=== PATIENT | male | born 1935 ===

== ENCOUNTER 2017-09-01 19:21 | Emergency (ER) | payer MEDICARE, OTHER ==
[2017-09-01 19:21] VITALS: BMI 23.6
[2017-09-01 19:57] LABS: BASO # 0.1 K/uL (0.0-0.2); BASO % 0.7 % (0.0-2.0); EOS # 0.1 K/uL (0.0-0.7); EOS % 0.9 % (0.0-4.0); HEMATOCRIT 48.1 % (35.0-51.0); LYMPH # 2.3 K/uL (1.0-4.3); LYMPH % 24.2 % (20.0-40.0); MEAN CELL VOLUME 96.5 fl (80.0-94.0); MEAN CORPUSCULAR HEMOGLOBIN 32.6 pg (27.0-31.0); MEAN CORPUSCULAR HGB CONC 33.8 g/dL (33.0-37.0); MEAN PLATELET VOLUME 8.5 fl (7.2-11.7); MONO # 0.7 K/uL (0.0-0.8); MONO % 7.4 % (0.0-10.0); NEUT # 6.3 K/uL (1.8-7.0); NEUT % 66.8 % (50.0-75.0); RED CELL DISTRIBUTION WIDTH 13.3 % (11.5-14.5); WHITE BLOOD COUNT 9.5 K/uL (4.8-10.8)
[2017-09-01 19:58] VITALS: RESP 16
[2017-09-01] MEDS ORDERED: Phytonadione 10 mg/ml Inj (Adult) IVPB SCH (20:00)
[2017-09-01] MEDS ORDERED: Phytonadione 10 MG in Sodium Chloride 0.9% 50 ML IV ONE (20:00)
[2017-09-01 20:03] LABS: ALB/GLOB RATIO 1.2 (1.0-2.1); ALKALINE PHOSPHATASE 34 U/L (38-126); ALT/SGPT 37 U/L (21-72); AST/SGOT 56 U/L (17-59); BILIRUBIN,TOTAL 0.9 mg/dl (0.2-1.3); BLOOD UREA NITROGEN 22 mg/dl (9-20); CALCIUM 10.1 mg/dL (8.4-10.2); CARBON DIOXIDE 26 mmol/L (22-30); CHLORIDE 103 mmol/L (98-107); CHOLESTEROL 155 mg/dL (0-199); GFR AFRICAN-AMERICAN > 60; GLUCOSE,RANDOM 129 mg/dL (75-110); POTASSIUM 4.3 MMOL/L (3.6-5.0); SODIUM 140 mmol/l (132-148); TOTAL PROTEIN 8.7 G/DL (6.3-8.2)
[2017-09-01 20:07] LABS: PARTIAL THROMBOPLASTIN TIME 52.9 Seconds (25.6-37.1)
[2017-09-01] MEDS ORDERED: Nicardipine 20 MG/200 ML 20 MG/200 ML BAG IV ONE (20:23)
--- NOTE | 2017-09-01 20:34 | ED PDOC ---
HPI:STROKE - Time Time: 19:35 - Historian Historian: Patient, EMS - Chief Complaint Chief Complaint: Confusion, other (Severe headache) - Onset Date: 09/01/17 Time: 16:00 (Estimated) Onset: Hours - Timing Timing: Currently Symptomatic - Location Location: Speech (difficulty findings words) Locate left: other (LEFT sided headache) - Notes: Notes:: Pt had sudden onset headache at 4pm, LEFT sided. Pt has some word-finding difficulty and history is difficult. On route from home in ambulance, pt developed nausea and is now vomiting in ER. PMD: Dr Loyd NIHSS Stroke Scale - Date/Time Evaluation Performed Date Performed: 09/01/17 Time Performed: 19:35 When Was NIHSS Performed: Baseline - How Severe is the Stroke Level of Consciousness: 0=Alert LOC to Questions: 2=Neither correct LOC to commands: 0=Obeys both correctly Best Gaze: 0=Normal Visual: 0=No visual loss Facial: 0=Normal Motor Arm - Left: 0=No drift Motor Arm - Right: 0=No drift Motor Leg - Left: 0=No drift Motor Leg - Right: 0=No drift Limb Ataxia: 0=Absent Sensory: 0=Normal Best Language: 1=Mild to moderate aphasia Dysarthia: 0=Normal articulation Extinction & Inattention (Neglect): 0=Normal, no object Score: 3 rTPA Inclusion/Exclusion - Refusal of Treatment Patient Refused Treatment: No - Inclusion Criteria for Altepase Patient is 18 years or Older: Yes The Clinical Diagnosis of Ischemic Stroke That is Causing a Potentially Disabling Neurological Deficit: Yes Time of Onset is Well Established to be Less Than 270 Minute Before Treatment Would Begin: No Risk/Benefit Discussed With Patient/Family Member Present: Yes - Exclusion Criteria for Altepase History of: Brain Aneurysm Active Internal Bleeding: Yes Evidence of an Intracranial Hemorrhage: Yes Past Medical History Reviewed: Historical Data, Nursing Documentation, Vital Signs Vital Signs: Last Vital Signs Temp 98.1 F 09/01/17 19:23 Pulse 68 09/01/17 19:57 Resp 16 09/01/17 19:57 BP 159/80 H 09/01/17 19:57 Pulse Ox 99 09/01/17 19:57 - Medical History PMH: Asthma (SEASONAL), Atrial Fibrillation, Cardia Arrhythmia (A-FIB), HTN, Hypercholesterolemia Denies: Chronic Kidney Disease - Family History Family History: States: Unknown Family Hx - Social History Current smoker - smoking cessation education provided: No - Immunization History Hx Tetanus Toxoid Vaccination: Yes Hx Influenza Vaccination: Yes Hx Pneumococcal Vaccination: Yes - Home Medications Home Medications: Ambulatory Orders Medication Instructions Recorded B Complex 1 tab PO DAILY 02/21/14 Cholecalciferol (Vitamin D3) 5,000 iu PO DAILY 02/21/14 [Vitamin D3] Esomeprazole Magnesium [Nexium] 40 mg PO DAILY 02/21/14 Metoprolol Succinate [Toprol XL] 100 mg PO DAILY 02/21/14 Montelukast [Singulair] 10 mg PO DAILY 02/21/14 Spironolactone 100 mg PO DAILY 02/21/14 Tamsulosin Hydrochloride 0.4 mg PO DAILY 02/21/14 Albuterol Sulfate [Proair Hfa] 2 puff IH HS 05/20/15 Aspirin 81 mg PO DAILY 05/20/15 Fluctocasone Nasal Spring 2 spray DEUCE DAILY 05/20/15 Warfarin [Coumadin] 2 mg PO DAILY 05/20/15 Warfarin [Coumadin] 3 mg PO MWF 05/20/15 Lisinopril 5 mg PO DAILY #30 tablet 02/16/16 Simvastatin 20 mg PO DAILY #30 tablet 02/16/16 - Allergies Allergies/Adverse Reactions: Allergies Allergy/AdvReac Type Severity Reaction Status Date / Time codeine Allergy Verified 02/13/16 11:01 Tricyclic Compounds Allergy Verified 02/13/16 11:01 vancomycin Allergy Verified 02/13/16 11:01 Review of Systems ROS Statement: Except As Marked, All Systems Reviewed And Found Negative (and as per HPI) Constitutional: Positive for: Weakness, Malaise Gastrointestinal: Positive for: Nausea, Vomiting Neurological: Positive for: Change in Speech, Headache, Dizziness Physical Exam - Reviewed Nursing Documentation Reviewed: Yes Vital Signs Reviewed: Yes - Physical Exam Appears: Positive for: Non-toxic, In Acute Distress Head Exam: Positive for: ATRAUMATIC, NORMOCEPHALIC Skin: Positive for: Warm, Dry Eye Exam: Positive for: EOMI, PERRL ENT: Positive for: Pharynx Is (clear) Neck: Positive for: Painless ROM, Supple Cardiovascular/Chest: Positive for: Regular Rate, Rhythm, Chest Non Tender. Negative for: Murmur Respiratory: Positive for: Normal Breath Sounds. Negative for: Wheezing, Respiratory Distress Gastrointestinal/Abdominal: Positive for: Soft. Negative for: Tenderness Back: Positive for: Normal Inspection. Negative for: Decreased ROM Extremity: Positive for: Normal ROM. Negative for: Deformity Lymphatic: Negative for: Adenopathy Neurologic/Psych: Positive for: Alert, healthcare receptionist II-XII, Oriented, Aphasia (mild expression). Negative for: Motor/Sensory Deficits, Facial Droop - Laboratory Results Result Diagrams: 09/01/17 19:40 09/01/17 20:30 - ECG ECG Rhythm: Positive for: Atrial Fibrillation (rate controlled) O2 Sat by Pulse Oximetry: 99 Pulse Ox Interpretation: Normal - Progress ED Course And Treament: Addendum created by Mihir Corley MD on 09/01/2017 7:56 PM Eastern Time ([place] & [place] ) The findings were verbally communicated via telephone conference with Parris Russell at 7:56 PM EDT on 09/01/2017. The findings were acknowledged and understood. Initial Report created on 09/01/2017 7:52 PM Eastern Time ([place] & [place]) EXAM: CT Head Without Intravenous Contrast CLINICAL HISTORY: The patient is 82 years-old, male; Signs and symptoms; Other: Headache; Additional info: Code stroke TECHNIQUE: Axial computed tomography images of the head/brain without intravenous contrast. All CT scans at this facility use one or more dose reduction techniques, viz.: automated exposure control; ma/kV adjustment per patient size (including targeted exams where dose is matched to indication; i.e. head); or iterative reconstruction technique. Coronal and sagittal reformatted images were created and reviewed. COMPARISON: No relevant prior studies available. FINDINGS: Brain: 3 cm acute left temporal parenchymal hemorrhage. Minimal subarachnoid hemorrhage. Minimal mass effect, no midline shift. Chronic ischemic change. Ventricles: No intraventricular hemorrhage. No ventriculomegaly. Bones/joints: No acute findings. Soft tissues: Unremarkable. 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 Sinuses: Unremarkable as visualized. No acute sinusitis. Mastoid air cells: Unremarkable as visualized. No mastoid effusion. IMPRESSION: 3 cm acute left temporal parenchymal hemorrhage. Thank you for allowing us to participate in the care of your patient. Dictated and Authenticated by: Mihir Corley MD 09/01/2017 7:52 PM Eastern Time ([place] & [place]) MARCOS Mayes Neurology and Dr Mcgowan Neurosurgery who advise transfer to vascular neurosurgical center. MARCOS BOWMAN. DW pt's family and pt to be transferred to [facility]. IV Zofran, IV Vit K, IV Kcentra, IV Cardene, PO Tylenol. MARCOS Collins receiving ER MD at [facility]. 2100 On reevaluation, pt's symptoms unchanged. Pt pending ambulance. Stable for transfer Condition: Unchanged - Critical Care Total Time (In Min): 45 Documented Critical Care: Time excludes all time spent performint seperately billable procedures Disposition - Clinical Impression Clinical Impression: Subarachnoid hemorrhage due to ruptured aneurysm - Disposition Disposition: Other Institution Disposition Time: 18:00 Condition: CRITICAL Forms: [facility] (Turkish)
[2017-09-01] MEDS ORDERED: Hum Prothrombin CPLX(PCC)4FACT 1 Unit Inj IV ONE (21:15)
[2017-09-01 21:48] VITALS: BP 134/77; PULSE 76
[2017-09-01 21:53] VITALS: TEMP 97.9
[2017-09-01 22:18] VITALS: O2SAT 99
--- NOTE | 2017-09-02 09:53 | CT ---
PROCEDURE: CT HEAD WITHOUT CONTRAST. HISTORY: code stroke COMPARISON: None available. TECHNIQUE: Axial computed tomography images were obtained through the head/brain without intravenous contrast. Radiation dose: Total exam DLP = mGy-cm. This CT exam was performed using one or more of the following dose reduction techniques: Automated exposure control, adjustment of the mA and/or kV according to patient size, and/or use of iterative reconstruction technique. FINDINGS: HEMORRHAGE: Acute parenchymal hemorrhage left temporal parietal region. BRAIN: No mass effect or edema. No atrophy or chronic microvascular ischemic changes. VENTRICLES: Unremarkable. No hydrocephalus. CALVARIUM: Unremarkable. PARANASAL SINUSES: Unremarkable as visualized. No significant inflammatory changes. MASTOID AIR CELLS: Unremarkable as visualized. No inflammatory changes. OTHER FINDINGS: None. IMPRESSION: Normal CT of the Head. Code stroke protocol: Study completed 19:41 Dictated and aut henticated 19:52 Results conveyed verbally at 19:56. Interpretation finalized and available for review 09:50. September 02, 2017.
--- NOTE | 2017-09-02 14:09 | RAD ---
HISTORY: Code stroke. Technique: Single view portable semi erect @ 19:57. COMPARISON: No prior. FINDINGS: LUNGS: No active pulmonary disease. PLEURA: No significant pleural effusion identified, no pneumothorax apparent. CARDIOVASCULAR: Normal. OSSEOUS STRUCTURES: No significant abnormalities. VISUALIZED UPPER ABDOMEN: Normal. OTHER FINDINGS: None. IMPRESSION: No active disease. Please note: No preliminary report/ innterpretation of this examination provided by emergency department personnel.
--- NOTE | 2017-09-03 06:40 | CARD ---
APPROVED REPORT EKG Measurement Heart [id number] <Conclusion> Atrial fibrillation with premature ventricular or aberrantly conducted complexes Left axis deviation Moderate voltage criteria for LVH, may be normal variant Nonspecific ST abnormality Abnormal ECG
== END 2017-09-01 22:15 | disposition short-term general hospital (02) ==
LOC: H.ER 19:21
DX: I60.7 Nontraumatic subarachnoid hemorrhage from unspecified intracranial artery (principal); I10 Essential (primary) hypertension; J45.909 Unspecified asthma, uncomplicated; E78.00 Pure hypercholesterolemia, unspecified; Z79.01 Long term (current) use of anticoagulants
CPT/HCPCS: 70450; 71010; 80053; 80061; 82948; 83036; 84484; 85025; 85610; 85730; 86850; 86900; 93005; 96360; 96361; 99285; C9132; J2405; J3430

== ENCOUNTER 2018-02-23 12:44 | Inpatient (IN) | payer MEDICARE, OTHER ==
[2018-02-23 12:45] VITALS: BMI 23.6
--- NOTE | 2018-02-23 14:10 | ED PDOC ---
HPI: General Adult Time Seen by Provider: 02/23/18 13:55 Chief Complaint (Nursing): Chest Pain Chief Complaint (Provider): weakness/fatigue History Per: Patient, Family (daughter in [place]) History/Exam Limitations: no limitations Onset/Duration Of Symptoms: Days (2) Have you had recent travel within the past 21 days to any of the following countries: [place], [place], [place] or [place]?: No Current Symptoms Are (Timing): Intermittent Episodes Severity: Moderate Pain Scale Rating Of: 4 Recently: Seen In ED Additional Complaint(s): pt p/w 1-2 days onset of noted worsening weakness as per daughter in law, pt states he felt some what weak and easily fatigued; pt states + 2 episodes of vomiting last night; pt also noted mild substernal chest aches/pain, non-radiating, mild sob, no palpitations, no fever/chills/sweats; no abd pain, no n/v, no numbness/tingling, no urinary/ bowel changes, no fall/trauma/sick contact, no travel; pt was last seen by family members during easter dinner (4 days ago) and was at baseline mental status; pt was noted by daughter in law with intermittent speech changes x few hours, and general changes of behavior compare to baseline no vision changes, no knight, no neck pain, no slurr speech currently no arm/leg weakness no other complaints pt is here for further eval. pt is right hand dominate pt lives alone PCP: Dr Loyd recent hx of brain aneurysm - s/p coiling NIHSS Stroke Scale 3 - Date/Time Evaluation Performed Date Performed: 02/23/18 Time Performed: 14:00 When Was NIHSS Performed: Baseline - How Severe is the Stroke Level of Consciousness: 0=Alert LOC to Questions: 0=Both comments correct LOC to commands: 0=Obeys both correctly Best Gaze: 0=Normal Visual: 0=No visual loss Facial: 0=Normal Motor Arm - Left: 0=No drift Motor Arm - Right: 0=No drift Motor Leg - Left: 0=No drift Motor Leg - Right: 0=No drift Limb Ataxia: 0=Absent Sensory: 0=Normal Best Language: 0=No aphasia Dysarthia: 0=Normal articulation Extinction & Inattention (Neglect): 0=Normal, no object Score: 0 Past Medical History Reviewed: Historical Data, Nursing Documentation, Vital Signs Vital Signs: Last Vital Signs Temp 98.4 F 02/23/18 12:54 Pulse 93 H 02/23/18 19:30 Resp 18 02/23/18 19:30 BP 134/75 02/23/18 12:54 Pulse Ox 94 L 02/23/18 19:30 - Medical History PMH: Asthma (SEASONAL), Atrial Fibrillation, Cardia Arrhythmia, HTN, Hypercholesterolemia Denies: Chronic Kidney Disease - Family History Family History: States: Unknown Family Hx - Immunization History Hx Tetanus Toxoid Vaccination: Yes Hx Influenza Vaccination: Yes Hx Pneumococcal Vaccination: Yes - Home Medications Home Medications: Ambulatory Orders Medication Instructions Recorded Albuterol HFA [Ventolin HFA 90 2 puff IH Q6 PRN 02/23/18 mcg/actuation (8 g)] Aspirin [Ecotrin] 81 mg PO DAILY 02/23/18 Cholecalciferol (Vitamin D3) 2,000 unit PO DAILY 02/23/18 [Vitamin D3] Cu/Se/Vit A/Vit C/Vit E/Zinc 1 tab PO DAILY 02/23/18 [Ocuvite] Esomeprazole Magnesium [Nexium] 40 mg PO DAILY 02/23/18 Fenofibrate Nanocrystallized 145 mg PO DAILY 02/23/18 [Fenofibrate] Fluticasone Nasal [Flonase] 2 spray DEUCE DAILY PRN 02/23/18 Ginkgo Biloba [Ginkgo Biloba] 40 mg PO DAILY 02/23/18 Glucosa Lerma 2Kcl/Chondroitin Lerma 1 cap PO DAILY 02/23/18 [Glucosamine & Chondroitin Cap] Levocetirizine Dihydrochloride 5 mg PO HS 02/23/18 [Xyzal] Metoprolol Succinate [Toprol XL] 100 mg PO DAILY 02/23/18 Montelukast [Singulair] 10 mg PO HS 02/23/18 [place]-3S/Dha/Epa/Fish Oil [Fish 1 cap PO DAILY 02/23/18 Oil [place]-3 Softgel] Simvastatin [Zocor] 20 mg PO HS 02/23/18 Spironolactone [Aldactone] 100 mg PO DAILY 02/23/18 Tamsulosin [Flomax] 0.8 mg PO HS 02/23/18 Vitamin B Complex [Super B-50 1 cap PO DAILY 02/23/18 Complex] Warfarin [Coumadin] 2 mg PO SUSA 02/23/18 Warfarin [Coumadin] 3 mg PO MOTUWETHFR 02/23/18 - Allergies Allergies/Adverse Reactions: Allergies Allergy/AdvReac Type Severity Reaction Status Date / Time codeine Allergy Verified 02/13/16 11:01 Tricyclic Compounds Allergy Verified 02/13/16 11:01 vancomycin Allergy Verified 02/13/16 11:01 Review of Systems ROS Statement: Except As Marked, All Systems Reviewed And Found Negative Constitutional: Positive for: Weakness, Malaise Eyes: Negative for: Pain ENT: Negative for: Ear Pain Cardiovascular: Positive for: Chest Pain. Negative for: Palpitations Respiratory: Negative for: Cough, Shortness of Breath Gastrointestinal: Negative for: Nausea, Vomiting Genitourinary Male: Negative for: Dysuria Musculoskeletal: Negative for: Neck Pain Skin: Negative for: Rash Neurological: Positive for: Weakness, Altered Mental Status, Dizziness Physical Exam - Reviewed Nursing Documentation Reviewed: Yes Vital Signs Reviewed: Yes (WNL) - Physical Exam Appears: Positive for: Well, Non-toxic, No Acute Distress Head Exam: Positive for: ATRAUMATIC, NORMAL INSPECTION (mild bi-temporal wasting ) Skin: Positive for: Normal Color (cap refill < 1sec, no ulcerations, no petechiae, no rashes/lesions), Warm, Dry Eye Exam: Positive for: Normal appearance, EOMI, PERRL, Other (no photophobia). Negative for: Nystagmus ENT: Positive for: Normal ENT Inspection Neck: Positive for: Normal (no step off, no nuchal rigidity, no meningeal signs) . Negative for: Painless ROM, Decreased ROM Cardiovascular/Chest: Positive for: Regular Rate, Rhythm (+S1, +S2). Negative for: Murmur Respiratory: Positive for: Normal Breath Sounds (CTA b/l, no w/r/r, no accessory muscle use noted, no tachypenia). Negative for: Decreased Breath Sounds, Accessory Muscle Use Gastrointestinal/Abdominal: Positive for: Normal Exam Back: Positive for: Normal Inspection. Negative for: L CVA Tenderness, R CVA Tenderness Extremity: Positive for: Normal ROM (+ ambulatory, neurovasc intact b/l, strength 5/5 grossly intact in all limbs, intact ROM). 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 Negative for: Facial Droop - Laboratory Results Result Diagrams: 02/23/18 14:10 02/23/18 14:10 Interpretation Of Abnormal: elevated trop - ECG Interpretation Of ECG: Atrial fib at 90 bpm, LAD, + ectopy, voltage critiera LVH; peaked Ts noted to V2 -4, no st changes, ABNL EKG; O2 Sat by Pulse Oximetry: 96 Pulse Ox Interpretation: Normal - Radiology X-Ray: Read By Radiologist - Progress ED Course And Treament: PROCEDURE: CT scan of the brain 02/23/2018 HISTORY: Weakness. History of aneurysm rupture and post coiling. COMPARISON: Comparison made with prior CT scan brain 09/01/2017. TECHNIQUE: Contiguous helical/transaxial computed tomography images were obtained through the head/brain without intravenous contrast. Radiation dose: Total exam DLP = 807.31 mGy-cm. This CT exam was performed using one or more of the following dose reduction techniques: Automated exposure control, adjustment of the mA and/or kV according to patient size, and/or use of iterative reconstruction technique. FINDINGS: HEMORRHAGE: The current study reveals no evidence of acute intracranial hemorrhage. There has been interval resolution previously noted left temporal lobe hemorrhage with embolization coils and aneurysm located left MCA trifurcation region. Residual localized partially cystic encephalomalacia changes left temporal lobe at the location of since resorbed hemorrhage. There is another unruptured peripherally partially calcified aneurysm in the right lateral/sylvian fissure junction at the MCA trifurcation and measures approximately 9 mm. . Moderate to significant diffuse/confluent chronic periventricular white matter ischemic changes seen extending peripherally into the deep and subcortical white matter both cerebral hemispheres. . . There is also extension of these changes into the white matter tracts of both basal nuclei. Multiple more discrete deep and subcortical white matter as well bilateral basal nuclei chronic lacunar-type infarcts also present. Moderate generalized volume loss. Vascular calcifications anterior and posterior circulations. No obstructive hydrocephalus. Calvarium appears intact. Changes of right-sided cataract surgery. . Visualized paranasal sinuses well- developed and currently well-aerated. 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 Previously noted parenchymal hemorrhage left temporal lobe has resolved with a residual partially cystic encephalomalacia. There is a small unruptured partially peripherally calcified aneurysm right MCA trifurcation region measuring approximately 9 mm. Moderate to fairly significant chronic white matter ischemic changes with multiple bilateral basal nuclei lacunar type infarcts. These findings were sent discussed with Dr. Silva at approximately 4:10 p.m. with written down and back verification. . HISTORY: Weakness COMPARISON: 09/01/2017. FINDINGS: LUNGS: No active pulmonary disease. PLEURA: No significant pleural effusion identified, no pneumothorax apparent. CARDIOVASCULAR: Cardiomegaly. No evidence of acute, significant cardiovascular disease. OSSEOUS STRUCTURES: No significant abnormalities. VISUALIZED UPPER ABDOMEN: Normal. OTHER FINDINGS: None. IMPRESSION: No active disease. No significant interval change compared to the prior examination(s). PROCEDURE: CT Angiography of the neck and brain dated 02/23/2018. HISTORY: Rule out hemorrhage. COMPARISON: Comparison made with concurrent contrast CT scan brain TECHNIQUE: Contiguous helical/transaxial images of the neck were obtained from the level of the skull-base to the superior mediastinum in the arteriographic phase of enhancement. Coronal and sagittal reformats or also generated. IV contrast dose: 90 cc Visipaque 20 contrast material. Radiation Dose - DLP: 614.97 mGy-cm This CT exam was performed using one or more of the following dose reduction techniques: Automated exposure control, adjustment of the mA and/or kV according to patient size, and/or use of iterative reconstruction technique. FINDINGS: The visualized transverse portion of the aortic arch widely patent with some minor partially calcified plaque changes. The ascending thoracic aorta mildly dilated measuring approximately 3.8 cm in transverse dimension. The origins of the great vessels are widely patent with only minimal plaque seen along the origin of the brachiocephalic and left common carotid artery. The common carotid arteries widely patent without evidence of occlusion or significant stenosis. Some minor calcified plaque seen along the left carotid bifurcation and proximal margins of both internal carotid arteries with no significant stenosis. The distal internal carotid arteries including the petrous , cavernous and supraclinoid segments are patent. There are mild calcified plaque is changes seen along the cavernous carotid segments. There is fusiform dilatation of the left supraclinoid carotid artery 7 mm in greatest dimension. Seen better advantage is a unruptured right MCA trifurcation aneurysm that measures approximately 10 mm x 9 mm. The vertebral arteries are patent throughout left-side of which is slightly larger in caliber/ more dominant than the right side. There are the mild partially calcified plaque changes seen along the proximal intradural segments of the vertebral arteries. . . Multiple metallic presumably occluded a left MCA trifurcation aneurysm. No residual aneurysm or aneurysm neck identified however note that the coils cells resultant significant surrounding streak and beam hardening artifact. There is a small aneurysm at the distal margin of the left vertebral artery which measures approximately 8.1 mm. This could conceivably be located at the origin of the right PICA however the distal margin of the left vertebral artery does not join the right vertebral artery to be common basilar and may have originally terminated in a left PICA . The basilar appears arise from the right vertebral artery . . The basilar artery exhibits localized and fusiform type dilatations the most significant of which is located along its proximal margin and exhibits slightly saccular configuration measuring approximate 6.5 mm. The the distal basilar artery exhibits more fusiform dilatation measuring approximately 5.5 mm in greatest transverse dimension. There is a smaller focal dilatation along the mid basilar artery located between the two aforementioned aneurysms ; the possibility of string of beads configuration of fibromuscular dysplasia not excluded. 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 The basilar artery also exhibits mild dilatation proximally which is slightly saccular in appearance measuring approximately 6.5 mm and more distally fusiform measuring 5.5 mm. 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 Status post coiling left MCA trifurcation region aneurysm. Findings discussed with Dr. Silva at approximately 5:15 p.m. with written down and read back verification. 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 chest pain A/P: r/o acs, malaise/vomiting, weakness - labs - iv - acs eval - xray - ct - observe - supportive care Disposition - Clinical Impression Clinical Impression: NSTEMI (non-ST elevated myocardial infarction), Elevated troponin, Weakness, Brain aneurysm - Patient ED Disposition Is Patient to be Admitted: Yes Discussed With DrJordan: Salvador Hill Counseled Patient/Family Regarding: Studies Performed, Diagnosis, Rx Given - Disposition Disposition Time: 15:30 Condition: STABLE - Pt Status Changed To: Hospital Disposition Of: Inpatient - Admit Certification Admit to Inpatient:: After my assessment, the patient will require hospitalization for at least two midnights. This is because of the severity of symptoms shown, intensity of services needed, and/or the medical risk in this patient being treated as an outpatient.
[2018-02-23 14:16] LABS: BASO % 0.2 % (0.0-2.0); HEMOGLOBIN 15.5 g/dL (12.0-18.0); LYMPH # 0.7 K/uL (1.0-4.3); LYMPH % 6.5 % (20.0-40.0); MEAN CELL VOLUME 96.5 fl (80.0-94.0); MEAN CORPUSCULAR HEMOGLOBIN 32.5 pg (27.0-31.0); MEAN CORPUSCULAR HGB CONC 33.7 g/dL (33.0-37.0); MEAN PLATELET VOLUME 8.6 fl (7.2-11.7); MONO # 0.4 K/uL (0.0-0.8); MONO % 3.8 % (0.0-10.0); NEUT # 9.6 K/uL (1.8-7.0); NEUT % 89.5 % (50.0-75.0); PLATELET COUNT 230 K/uL (130-400); RBC 4.76 Mil/uL (4.40-5.90); WHITE BLOOD COUNT 10.7 K/uL (4.8-10.8)
[2018-02-23 14:24] LABS: INR 1.7 (0.9-1.2); PROTHROMBIN TIME 19.3 Seconds (9.8-13.1)
[2018-02-23 14:25] LABS: PARTIAL THROMBOPLASTIN TIME 38.5 Seconds (25.6-37.1)
[2018-02-23 14:32] LABS: ALT/SGPT 37 U/L (21-72); AST/SGOT 33 U/L (17-59); BLOOD UREA NITROGEN 23 mg/dl (9-20); CALCIUM 10.4 mg/dL (8.4-10.2); GFR AFRICAN-AMERICAN > 60; GFR NON-AFRICAN AMERICAN > 60; LIPASE 73 U/L (23-300)
[2018-02-23 14:59] LABS: B-TYPE NATRIURETIC PEPTIDE 6220 pg/ml (0-900)
[2018-02-23 15:14] LABS: URINE BACTERIA RARE (<OCC); URINE BILIRUBIN NEGATIVE (NEGATIVE); URINE BLOOD MODERATE (NEGATIVE); URINE CLARITY CLOUDY (Clear); URINE COLOR YELLOW (YELLOW); URINE GLUCOSE (UA) NEG (Normal); URINE LEUKOCYTE ESTERASE MOD Leu/uL (Negative); URINE PROTEIN 30 mg/dL (NEGATIVE); URINE UROBILINOGEN 0.2-1.0 mg/dL (0.2-1.0)
[2018-02-23 15:18] LABS: LYMPHOCYTE 5 % (20-50); MONOCYTE 4 % (0-10); NEUTROPHIL 91 % (42-75); PLATELET ESTIMATE NORMAL (NORMAL); TOTAL CELLS COUNTED 100
[2018-02-23] MEDS ORDERED: Iodixanol 320 MG/ML 100 ML BOTTLE IV ONE (15:18)
--- NOTE | 2018-02-23 15:41 | RAD ---
HISTORY: Weakness COMPARISON: 09/01/2017. FINDINGS: LUNGS: No active pulmonary disease. PLEURA: No significant pleural effusion identified, no pneumothorax apparent. CARDIOVASCULAR: Cardiomegaly. No evidence of acute, significant cardiovascular disease. OSSEOUS STRUCTURES: No significant abnormalities. VISUALIZED UPPER ABDOMEN: Normal. OTHER FINDINGS: None. IMPRESSION: No active disease. No significant interval change compared to the prior examination(s).
--- NOTE | 2018-02-23 16:19 | CT ---
PROCEDURE: CT scan of the brain 02/23/2018 HISTORY: Weakness. History of aneurysm rupture and post coiling. COMPARISON: Comparison made with prior CT scan brain 09/01/2017. TECHNIQUE: Contiguous helical/transaxial computed tomography images were obtained through the head/brain without intravenous contrast. Radiation dose: Total exam DLP = 807.31 mGy-cm. This CT exam was performed using one or more of the following dose reduction techniques: Automated exposure control, adjustment of the mA and/or kV according to patient size, and/or use of iterative reconstruction technique. FINDINGS: HEMORRHAGE: The current study reveals no evidence of acute intracranial hemorrhage. There has been interval resolution previously noted left temporal lobe hemorrhage with embolization coils and aneurysm located left MCA trifurcation region. Residual localized partially cystic encephalomalacia changes left temporal lobe at the location of since resorbed hemorrhage. There is another unruptured peripherally partially calcified aneurysm in the right lateral/sylvian fissure junction at the MCA trifurcation and measures approximately 9 mm. . Moderate to significant diffuse/confluent chronic periventricular white matter ischemic changes seen extending peripherally into the deep and subcortical white matter both cerebral hemispheres. . . There is also extension of these changes into the white matter tracts of both basal nuclei. Multiple more discrete deep and subcortical white matter as well bilateral basal nuclei chronic lacunar-type infarcts also present. Moderate generalized volume loss. Vascular calcifications anterior and posterior circulations. No obstructive hydrocephalus. Calvarium appears intact. Changes of right-sided cataract surgery. . Visualized paranasal sinuses well-developed and currently well-aerated. 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 Previously noted parenchymal hemorrhage left temporal lobe has resolved with a residual partially cystic encephalomalacia. There is a small unruptured partially peripherally calcified aneurysm right MCA trifurcation region measuring approximately 9 mm. Moderate to fairly significant chronic white matter ischemic changes with multiple bilateral basal nuclei lacunar type infarcts. These findings were sent discussed with Dr. Silva at approximately 4:10 p.m. with written down and back verification. .
--- NOTE | 2018-02-23 17:20 | CT ---
PROCEDURE: CT Angiography of the neck and brain dated 02/23/2018. HISTORY: Rule out hemorrhage. COMPARISON: Comparison made with concurrent contrast CT scan brain TECHNIQUE: Contiguous helical/transaxial images of the neck were obtained from the level of the skull-base to the superior mediastinum in the arteriographic phase of enhancement. Coronal and sagittal reformats or also generated. IV contrast dose: 90 cc Visipaque 20 contrast material. Radiation Dose - DLP: 614.97 mGy-cm This CT exam was performed using one or more of the following dose reduction techniques: Automated exposure control, adjustment of the mA and/or kV according to patient size, and/or use of iterative reconstruction technique. FINDINGS: The visualized transverse portion of the aortic arch widely patent with some minor partially calcified plaque changes. The ascending thoracic aorta mildly dilated measuring approximately 3.8 cm in transverse dimension. The origins of the great vessels are widely patent with only minimal plaque seen along the origin of the brachiocephalic and left common carotid artery. The common carotid arteries widely patent without evidence of occlusion or significant stenosis. Some minor calcified plaque seen along the left carotid bifurcation and proximal margins of both internal carotid arteries with no significant stenosis. The distal internal carotid arteries including the petrous, cavernous and supraclinoid segments are patent. There are mild calcified plaque is changes seen along the cavernous carotid segments. There is fusiform dilatation of the left supraclinoid carotid artery 7 mm in greatest dimension. Seen better advantage is a unruptured right MCA trifurcation aneurysm that measures approximately 10 mm x 9 mm. The vertebral arteries are patent throughout left-side of which is slightly larger in caliber/ more dominant than the right side. There are the mild partially calcified plaque changes seen along the proximal intradural segments of the vertebral arteries. . . Multiple metallic presumably occluded a left MCA trifurcation aneurysm. No residual aneurysm or aneurysm neck identified however note that the coils cells resultant significant surrounding streak and beam hardening artifact. There is a small aneurysm at the distal margin of the left vertebral artery which measures approximately 8.1 mm. This could conceivably be located at the origin of the right PICA however the distal margin of the left vertebral artery does not join the right vertebral artery to be common basilar and may have originally terminated in a left PICA . The basilar appears arise from the right vertebral artery . . The basilar artery exhibits localized and fusiform type dilatations the most significant of which is located along its proximal margin and exhibits slightly saccular configuration measuring approximate 6.5 mm. The the distal basilar artery exhibits more fusiform dilatation measuring approximately 5.5 mm in greatest transverse dimension. There is a smaller focal dilatation along the mid basilar artery located between the two aforementioned aneurysms ; the possibility of string of beads configuration of fibromuscular dysplasia not excluded. 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 The basilar artery also exhibits mild dilatation proximally which is slightly saccular in appearance measuring approximately 6.5 mm and more distally fusiform measuring 5.5 mm. 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 Status post coiling left MCA trifurcation region aneurysm. Findings discussed with Dr. Silva at approximately 5:15 p.m. with written down and read back verification.
[2018-02-23] MEDS ORDERED: Albuterol-Ipratrop 3 mg / 0.5 (3 ml) UD INH PRN (22:04)
[2018-02-23] MEDS ORDERED: Metoprolol Succinate 100 mg XL Tab PO ONE (22:15)
[2018-02-23] MEDS ORDERED: Magnesium Sulfate 2 gm/50 ml 2 GM/50 ML BAG IVPB ONE (22:27)
[2018-02-24 05:04] LABS: HEMOGLOBIN 14.8 g/dL (12.0-18.0); MEAN CELL VOLUME 96.4 fl (80.0-94.0); MEAN CORPUSCULAR HEMOGLOBIN 32.8 pg (27.0-31.0); RBC 4.51 Mil/uL (4.40-5.90); WHITE BLOOD COUNT 14.8 K/uL (4.8-10.8)
[2018-02-24 05:16] LABS: ALBUMIN 3.6 g/dL (3.5-5.0); ALT/SGPT 37 U/L (21-72); AST/SGOT 30 U/L (17-59); BLOOD UREA NITROGEN 20 mg/dl (9-20); CALCIUM 9.8 mg/dL (8.4-10.2); GFR AFRICAN-AMERICAN > 60; GFR NON-AFRICAN AMERICAN > 60; HDL CHOLESTEROL 28 MG/DL (30-70)
[2018-02-24 05:17] LABS: PROTHROMBIN TIME 22.6 Seconds (9.8-13.1)
[2018-02-24 05:18] LABS: PARTIAL THROMBOPLASTIN TIME 35.9 Seconds (25.6-37.1)
[2018-02-24 05:24] LABS: LDL CHOLESTEROL 81 mg/dL (0-129)
[2018-02-24] MEDS: Pantoprazole 40 mg EC Tab PO SCH (08:34)
[2018-02-24] MEDS: Metoprolol Succinate 100 mg XL Tab PO SCH (08:35)
[2018-02-24] MEDS: Enoxaparin 80 mg Syringe SC SCH (08:37)
[2018-02-24] MEDS: Cholecalciferol 1,000 INTLU TAB PO SCH (08:37)
[2018-02-24] MEDS ORDERED: GINKGO BILOBA 40 MG PO SCH (09:00)
[2018-02-24] MEDS ORDERED: Patient's Own Med (Vitamin B Complex [Super B-50 Complex] 1 CAP) PO SCH (09:00)
[2018-02-24] MEDS ORDERED: Enoxaparin 80 mg Syringe SC SCH (09:00)
--- NOTE | 2018-02-24 18:01 | CARD ---
APPROVED REPORT EXAM: Two-dimensional and M-mode echocardiogram with Doppler and color Doppler. Other Information Quality : GoodRhythm : PVC's INDICATION Chest Pain Elevated Troponin 2D DIMENSIONS IVSd1.84 (0.7-1.1cm)LVDd3.18 (3.9-5.9cm) LVOT Diameter1.87 (1.8-2.4cm)PWd1.38 (0.7-1.1cm) IVSs1.56 (0.8-1.2cm)LVDs2.01 (2.5-4.0cm) FS (%) 36.7 %PWs1.70 (0.8-1.2cm) M-Mode DIMENSIONS Left Atrium (MM)5.59 (2.5-4.0cm)IVSd1.52 (0.7-1.1cm) Aortic Root3.01 (2.2-3.7cm)LVDd4.30 (4.0-5.6cm) Aortic Cusp Exc.0.79 (1.5-2.0cm)PWd1.56 (0.7-1.1cm) IVSs2.05 cmFS (%) 55 % LVDs1.95 (2.0-3.8cm)PWs1.89 cm Aortic Valve AoV Peak Fbdomcer039.6cm/Renetta Peak GR.74mmHgLVOT Peak Scrlvroq574.5cm/s LVOT VTI19.79cmAVA (VMAX)0.16uv9HM P 1/2 Nkpn119re Mitral Valve E/A ratio0.0 TDI E/Lateral E'0.0E/Medial E'0.0 Pulmonary Valve PV Peak Axuthwti29.2cm/s LEFT VENTRICLE The left ventricle is normal size. There is moderate concentric left ventricular hypertrophy. The left ventricular function is normal. The left ventricular ejection fraction is 55-60% There is normal LV segmental wall motion. Transmitral Doppler flow pattern is Grade I-abnormal relaxation pattern. No left ventricle thrombus noted on this study. There is no ventricular septal defect visualized. There is no left ventricular aneurysm. There is no mass noted in the left ventricle. RIGHT VENTRICLE The right ventricle is normal size. There is normal right ventricular wall thickness. The right ventricular systolic function is normal. ATRIA The left atrium is mildly dilated. The right atrium size is normal. The interatrial septum is intact with no evidence for an atrial septal defect. AORTIC VALVE The aortic valve is moderately to severely sclerotic. There is mild aortic regurgitation. There is severe valvular aortic stenosis. Calculated aortic valve area is .7 cm2 with maximum pressure gradient of 88 mmHg There is no aortic valvular vegetation. MITRAL VALVE The mitral valve is normal in structure. There is no evidence of mitral valve prolapse. There is no mitral valve stenosis. There is no mitral valve regurgitation noted. TRICUSPID VALVE The tricuspid valve is normal in structure. There is no tricuspid valve regurgitation noted. There is no tricuspid valve prolapse or vegetation. There is no tricuspid valve stenosis. PULMONIC VALVE The pulmonary valve is normal in structure. There is no pulmonic valvular regurgitation. There is no pulmonic valvular stenosis. GREAT VESSELS The aortic root is normal in size. The ascending aorta is normal in size. The IVC is normal in size and collapses >50% with inspiration. PERICARDIAL EFFUSION The pericardium appears normal. There is no pleural effusion. <Conclusion> Normal LV systolic function Severe Aortic Stenosis MITCH .7cm2 Moderate Concentric LVH Left Atrial Enlargement
--- NOTE | 2018-02-24 18:10 | CARD ---
APPROVED REPORT EKG Measurement Heart [id number] <Conclusion> Atrial fibrillation with premature ventricular or aberrantly conducted complexes Left anterior fascicular block Nonspecific ST abnormality Abnormal ECG
--- NOTE | 2018-02-24 18:11 | CARD ---
APPROVED REPORT EKG Measurement Heart [id number] <Conclusion> Atrial fibrillation Left axis deviation Minimal voltage criteria for LVH, may be normal variant Nonspecific ST abnormality Abnormal ECG
--- NOTE | 2018-02-24 18:15 | CARD ---
APPROVED REPORT EKG Measurement Heart [id number] <Conclusion> Atrial fibrillation with premature ventricular or aberrantly conducted complexes Left axis deviation Minimal voltage criteria for LVH, may be normal variant Nonspecific ST abnormality Abnormal ECG
--- NOTE | 2018-02-24 21:43 | CP.PCM.HP ---
Past Patient History - Infectious Disease Hx of Infectious Diseases: None - Past Medical History & Family History Past Medical History?: Yes - Past Social History Smoking Status: Former Smoker - CARDIAC Hx Cardiac Disorders: Yes Hx Atrial Fibrillation: Yes Hx Cardia Arrhythmia: Yes Hx Hypercholesterolemia: Yes Hx Hypertension: Yes - PULMONARY Hx Respiratory Disorders: Yes Hx Asthma: Yes (SEASONAL) - NEUROLOGICAL Hx Neurological Disorder: Yes Other/Comment: Aneurysm, multiple - HEENT Hx HEENT Problems: Yes Hx Cataracts: Yes (Right with intraocular lens) Hx Glaucoma: Yes - RENAL Hx Chronic Kidney Disease: No - ENDOCRINE/METABOLIC Hx Endocrine Disorders: No - HEMATOLOGICAL/ONCOLOGICAL Hx Blood Disorders: No - INTEGUMENTARY Hx Dermatological Problems: Yes (PRE CANCEROUS LESIONS OVER BODY X6-REMOVED) - MUSCULOSKELETAL/RHEUMATOLOGICAL Hx Musculoskeletal Disorders: No Hx Falls: No - GASTROINTESTINAL Hx Gastrointestinal Disorders: No - GENITOURINARY/GYNECOLOGICAL Hx Genitourinary Disorders: Yes Hx Hematuria: Yes - PSYCHIATRIC Hx Psychophysiologic Disorder: No Hx Substance Use: No - SURGICAL HISTORY Hx Surgeries: Yes Hx Angioplasty: Yes (double) Hx Cataract Extraction: Yes (RIGHT) Other/Comment: STENT IN RIGHT LEG FROM CLOT FEBRUARY 2014. - ANESTHESIA Hx Anesthesia: Yes Hx Anesthesia Reactions: No Hx Malignant Hyperthermia: No Meds Allergies/Adverse Reactions: Allergies Allergy/AdvReac Type Severity Reaction Status Date / Time codeine Allergy Verified 02/13/16 11:01 Tricyclic Compounds Allergy Verified 02/13/16 11:01 vancomycin Allergy Verified 02/13/16 11:01 Results - Vital Signs Recent Vital Signs: Last Vital Signs Temp 97.5 F L 02/24/18 20:19 Pulse 78 02/24/18 20:19 Resp 20 02/24/18 20:19 BP 145/82 02/24/18 20:19 Pulse Ox 97 02/24/18 20:19 - Labs Result Diagrams: 02/24/18 04:56 02/24/18 04:56 Labs: Laboratory Results - last 24 hr 02/23/18 02/24/18 02/24/18 21:40 04:56 04:56 WBC 14.8 H RBC 4.51 Hgb 14.8 Hct 43.5 MCV 96.4 H MCH 32.8 H MCHC 34.0 RDW 14.0 Plt Count 204 PT INR APTT Sodium 140 Potassium 3.6 Chloride 101 Carbon Dioxide 23 Anion Gap 20 BUN 20 Creatinine 0.9 Est GFR ( Amer) > 60 Est GFR (Non-Af Amer) > 60 Random Glucose 129 H Hemoglobin A1c Calcium 9.8 Magnesium 1.7 Total Bilirubin 0.9 AST 30 ALT 37 Alkaline Phosphatase 29 L D Troponin I 0.1900 H* 0.1960 H* Total Protein 7.4 Albumin 3.6 Globulin 3.8 Albumin/Globulin Ratio 1.0 Triglycerides 99 Cholesterol 133 LDL Cholesterol Direct 81 HDL Cholesterol 28 L TSH 3rd Generation 0.68 02/24/18 02/24/18 02/24/18 04:56 04:56 10:30 WBC RBC Hgb Hct MCV MCH MCHC RDW Plt Count PT 22.6 H INR 2.0 H APTT 35.9 Sodium Potassium Chloride Carbon Dioxide Anion Gap BUN Creatinine Est GFR ( Amer) Est GFR (Non-Af Amer) Random Glucose Hemoglobin A1c 5.4 Calcium Magnesium Total Bilirubin AST ALT Alkaline Phosphatase Troponin I 0.1630 H* Total Protein Albumin Globulin Albumin/Globulin Ratio Triglycerides Cholesterol LDL Cholesterol Direct HDL Cholesterol TSH 3rd Generation
[2018-02-25 07:45] LABS: HEMOGLOBIN 15.1 g/dL (12.0-18.0); MEAN CELL VOLUME 96.2 fl (80.0-94.0); MEAN CORPUSCULAR HEMOGLOBIN 33.2 pg (27.0-31.0); MEAN CORPUSCULAR HGB CONC 34.5 g/dL (33.0-37.0); RBC 4.54 Mil/uL (4.40-5.90); RED CELL DISTRIBUTION WIDTH 13.5 % (11.5-14.5); WHITE BLOOD COUNT 9.1 K/uL (4.8-10.8)
[2018-02-25 07:59] LABS: BLOOD UREA NITROGEN 21 mg/dl (9-20); CALCIUM 9.6 mg/dL (8.4-10.2); GFR AFRICAN-AMERICAN > 60; GFR NON-AFRICAN AMERICAN > 60
--- NOTE | 2018-02-25 08:38 | CP.PCM.CON ---
History of Present Illness - History of Present Illness History of Present Illness: 82 y/o male admitted with generalized fatigue worsening over the 2 days [employer] pt c/o weakness denies any chest discomfort/palpitations/SOB EKG: Atrial Fibrillation no acute changes Troponins: elevated most likely secondary to Atrial Fibrillation PMH: Chronic Atrial Fibrillation Cerebral Hemorrhage / aneurysm Aug 2017 Asthma HTN Hyperlipidemia Past Patient History - Infectious Disease Hx of Infectious Diseases: None - Past Medical History & Family History Past Medical History?: Yes - Past Social History Smoking Status: Former Smoker - CARDIAC Hx Cardiac Disorders: Yes Hx Atrial Fibrillation: Yes Hx Cardia Arrhythmia: Yes Hx Hypercholesterolemia: Yes Hx Hypertension: Yes - PULMONARY Hx Respiratory Disorders: Yes Hx Asthma: Yes (SEASONAL) - NEUROLOGICAL Hx Neurological Disorder: Yes Other/Comment: Aneurysm, multiple - HEENT Hx HEENT Problems: Yes Hx Cataracts: Yes (Right with intraocular lens) Hx Glaucoma: Yes - RENAL Hx Chronic Kidney Disease: No - ENDOCRINE/METABOLIC Hx Endocrine Disorders: No - HEMATOLOGICAL/ONCOLOGICAL Hx Blood Disorders: No - INTEGUMENTARY Hx Dermatological Problems: Yes (PRE CANCEROUS LESIONS OVER BODY X6-REMOVED) - MUSCULOSKELETAL/RHEUMATOLOGICAL Hx Musculoskeletal Disorders: No Hx Falls: No - GASTROINTESTINAL Hx Gastrointestinal Disorders: No - GENITOURINARY/GYNECOLOGICAL Hx Genitourinary Disorders: Yes Hx Hematuria: Yes - PSYCHIATRIC Hx Psychophysiologic Disorder: No Hx Substance Use: No - SURGICAL HISTORY Hx Surgeries: Yes Hx Angioplasty: Yes (double) Hx Cataract Extraction: Yes (RIGHT) Other/Comment: STENT IN RIGHT LEG FROM CLOT FEBRUARY 2014. - ANESTHESIA Hx Anesthesia: Yes Hx Anesthesia Reactions: No Hx Malignant Hyperthermia: No Meds Allergies/Adverse Reactions: Allergies Allergy/AdvReac Type Severity Reaction Status Date / Time codeine Allergy Verified 02/13/16 11:01 Tricyclic Compounds Allergy Verified 02/13/16 11:01 vancomycin Allergy Verified 02/13/16 11:01 - Medications Medications: Current Medications Albuterol/Ipratropium (Duoneb 3 Mg/0.5 Mg (3 Ml) Ud) 3 ml INH RQ6 PRN PRN Reason: Shortness of Breath Aspirin (Ecotrin) 81 mg PO DAILY [facility] Last Admin: 02/24/18 08:33 Dose: 81 mg Atorvastatin Calcium (Lipitor) 40 mg PO DAILY [facility] Last Admin: 02/24/18 08:33 Dose: 40 mg Cholecalciferol (Vitamin D) 2,000 intlu PO DAILY [facility] Last Admin: 02/24/18 08:37 Dose: 2,000 intlu Enoxaparin Sodium (Lovenox) 70 mg SC Q12 [facility] PRN Reason: Protocol Last Admin: 02/24/18 08:37 Dose: 70 mg Fenofibrate (Tricor) 145 mg PO DAILY [facility] Last Admin: 02/24/18 08:36 Dose: 145 mg Fluticasone Propionate (Flonase) 2 spr DEUCE DAILY PRN PRN Reason: Nasal congestion Loratadine (Claritin) 10 mg PO DAILY [facility] Last Admin: 02/24/18 08:33 Dose: 10 mg Metoprolol Succinate (Toprol Xl) 100 mg PO DAILY [facility] Last Admin: 02/24/18 08:35 Dose: 100 mg Montelukast Sodium (Singulair) 10 mg PO [facility] Last Admin: 02/24/18 21:55 Dose: 10 mg Nitroglycerin (Nitrostat Sl Tab) 0.4 mg SL Q15M PRN PRN Reason: Chest pain Pantoprazole Sodium (Protonix Ec Tab) 40 mg PO DAILY [facility] Last Admin: 02/24/18 08:34 Dose: 40 mg Spironolactone (Aldactone) 100 mg PO DAILY [facility] Last Admin: 02/24/18 08:32 Dose: 100 mg Tamsulosin HCl (Flomax) 0.8 mg PO [facility] Last Admin: 02/24/18 21:55 Dose: 0.8 mg Physical Exam - Constitutional Appears: Well - Head Exam Head Exam: NORMAL INSPECTION - Eye Exam Eye Exam: Normal appearance - ENT Exam ENT Exam: Normal Exam - Respiratory Exam Respiratory Exam: NORMAL BREATHING PATTERN - Cardiovascular Exam Cardiovascular Exam: Irregular Rhythm Results - Vital Signs Recent Vital Signs: Last Vital Signs Temp 98.1 F 02/25/18 08:22 Pulse 72 02/25/18 08:22 Resp 20 02/25/18 08:22 BP 123/80 02/25/18 08:22 Pulse Ox 97 02/25/18 08:22 - Labs Result Diagrams: 02/25/18 06:31 02/25/18 06:31 Labs: Laboratory Results - last 24 hr 02/24/18 02/24/18 02/25/18 04:56 10:30 06:31 WBC 9.1 RBC 4.54 Hgb 15.1 Hct 43.6 MCV 96.2 H MCH 33.2 H MCHC 34.5 RDW 13.5 Plt Count 210 Sodium Potassium Chloride Carbon Dioxide Anion Gap BUN Creatinine Est GFR ( Amer) Est GFR (Non-Af Amer) Random Glucose Hemoglobin A1c 5.4 Calcium Troponin I 0.1630 H* 02/25/18 06:31 WBC RBC Hgb Hct MCV MCH MCHC RDW Plt Count Sodium 138 Potassium 3.6 Chloride 96 L Carbon Dioxide 29 Anion Gap 17 BUN 21 H Creatinine 1.0 Est GFR ( Amer) > 60 Est GFR (Non-Af Amer) > 60 Random Glucose 115 H Hemoglobin A1c Calcium 9.6 Troponin I Assessment & Plan (1) Elevated troponin Assessment and Plan: Troponins are elevated most likely secondary to Atrial Fibrillation Status: Acute (2) Weakness Status: Acute (3) A-fib Status: Chronic Priority: Medium (4) 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
[2018-02-25] MEDS: Enoxaparin 80 mg Syringe SC SCH (09:31)
[2018-02-25] MEDS: Metoprolol Succinate 100 mg XL Tab PO SCH (09:32)
[2018-02-25] MEDS: Pantoprazole 40 mg EC Tab PO SCH (09:32)
[2018-02-25] MEDS: Cholecalciferol 1,000 INTLU TAB PO SCH (09:33)
[2018-02-25 12:20] VITALS: RESP 18
--- NOTE | 2018-02-25 13:55 | MRI ---
PROCEDURE: MRI BRAIN WITHOUT CONTRAST HISTORY: Aphasia. History of aneurysm. COMPARISON: Comparison made with CT scan of the brain and CTA of the neck and brain dated 02/23/2018. TECHNIQUE: Multiplanar, multisequence MR images of the brain were obtained without intravenous contrast enhancement. FINDINGS: HEMORRHAGE: No acute parenchymal, subarachnoid nor extra-axial hemorrhage however note made of encephalomalacia changes with hemosiderin deposition left temporal lobe likely due to prior at aneurysm rupture. 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 . DWI: There is an area of restricted diffusion and subtle increased T2 signal in the left medial temporal lobe which is of uncertain etiology though differential diagnosis would include infarct or on the possibility of herpes encephalitis. Clinical correlation recommended. BRAIN PARENCHYMA: Significant diffuse - confluent chronic periventricular white matter ischemic changes seen extending peripherally into the deep and subcortical regions of both cerebral hemispheres. In addition, multiple more discrete chronic appearing lacunar type infarcts are seen scattered about the deep and subcortical white matter and both basal nuclei and probably within the brainstem as well. . 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 Please refer to that study and corresponding report for additional details. VENTRICLES: No obstructive hydrocephalus. CRANIUM: Calvarium appears unremarkable. ORBITS: Changes of right-sided cataract surgery again noted PARANASAL SINUSES/MASTOIDS: Clear VASCULAR SYSTEM: Visualized major vascular flow voids at skull base patent. OTHER FINDINGS: None. IMPRESSION: Localized area of restricted diffusion in the left medial temporal lobe/hippocampal region which is of uncertain etiology though differential level diagnosis would include acute/ subacute infarct or possibly herpes encephalitis. Clinical correlation recommended. Significant chronic white matter and lesser basal nuclei as well as suspected minor brainstem ischemic changes. Moderate volume loss. Status post embolization left MCA trifurcation aneurysm seen to better advantage on prior CTA and CT scan of the brain. . Multiple anterior and posterior circulation on ruptured aneurysms which are seen to much better advantage on prior CTA of the neck and brain dated 02/23/2018. Please refer that study and corresponding report for additional details.
[2018-02-25 16:13] VITALS: BP 132/76; PULSE 73; TEMP 97.8; O2SAT 98
--- NOTE | 2018-02-25 17:40 | CP.PCM.DIS ---
Provider - Provider Date of Admission: 02/23/18 17:09 Attending physician: Salvador Hill MD Hospital Course - Lab Results Lab Results: Most Recent Lab Values WBC 9.1 K/uL (4.8-10.8) 02/25/18 06:31 RBC 4.54 Mil/uL (4.40-5.90) 02/25/18 06:31 Hgb 15.1 g/dL (12.0-18.0) 02/25/18 06:31 Hct 43.6 % (35.0-51.0) 02/25/18 06:31 MCV 96.2 fl (80.0-94.0) H 02/25/18 06:31 MCH 33.2 pg (27.0-31.0) H 02/25/18 06:31 MCHC 34.5 g/dL (33.0-37.0) 02/25/18 06:31 RDW 13.5 % (11.5-14.5) 02/25/18 06:31 Plt Count 210 K/uL (130-400) 02/25/18 06:31 MPV 8.6 fl (7.2-11.7) 02/23/18 14:10 Neut % (Auto) 89.5 % (50.0-75.0) H 02/23/18 14:10 Lymph % (Auto) 6.5 % (20.0-40.0) L 02/23/18 14:10 [place] % (Auto) 3.8 % (0.0-10.0) 02/23/18 14:10 Eos % (Auto) 0.0 % (0.0-4.0) 02/23/18 14:10 Baso % (Auto) 0.2 % (0.0-2.0) 02/23/18 14:10 Neut # (Auto) 9.6 K/uL (1.8-7.0) H 02/23/18 14:10 Lymph # (Auto) 0.7 K/uL (1.0-4.3) L 02/23/18 14:10 [place] # (Auto) 0.4 K/uL (0.0-0.8) 02/23/18 14:10 Eos # (Auto) 0.0 K/uL (0.0-0.7) 02/23/18 14:10 Baso # (Auto) 0.0 K/uL (0.0-0.2) 02/23/18 14:10 Neutrophils % (Manual) 91 % (42-75) H 02/23/18 14:10 Lymphocytes % (Manual) 5 % (20-50) L 02/23/18 14:10 Monocytes % (Manual) 4 % (0-10) 02/23/18 14:10 Platelet Estimate Normal (NORMAL) 02/23/18 14:10 RBC Morphology Normal (NORMAL) 02/23/18 14:10 PT 22.6 Seconds (9.8-13.1) H 02/24/18 04:56 INR 2.0 (0.9-1.2) H 02/24/18 04:56 APTT 35.9 Seconds (25.6-37.1) 02/24/18 04:56 Sodium 138 mmol/l (132-148) 02/25/18 06:31 Potassium 3.6 MMOL/L (3.6-5.0) 02/25/18 06:31 Chloride 96 mmol/L (98-107) L 02/25/18 06:31 Carbon Dioxide 29 mmol/L (22-30) 04 06:31 Anion Gap 17 (10-20) 02/25/18 06:31 BUN 21 mg/dl (9-20) H 02/25/18 06:31 Creatinine 1.0 mg/dl (0.8-1.5) 04 06:31 Est GFR ( Amer) > 60 02/25/18 06:31 Est GFR (Non-Af Amer) > 60 02/25/18 06:31 Random Glucose 115 mg/dL (75-110) H 02/25/18 06:31 Hemoglobin A1c 5.4 % (4.2-6.5) 02/24/18 04:56 Calcium 9.6 mg/dL (8.4-10.2) 02/25/18 06:31 Magnesium 1.7 MG/DL (1.6-2.3) 02/24/18 04:56 Total Bilirubin 0.9 mg/dl (0.2-1.3) 02/24/18 04:56 AST 30 U/L (17-59) 02/24/18 04:56 ALT 37 U/L (21-72) 02/24/18 04:56 Alkaline Phosphatase 29 U/L (38-126) L D 02/24/18 04:56 Troponin I 0.1630 ng/mL (0.00-0.120) H* 02/24/18 10:30 NT-Pro-B Natriuret Pep 6220 pg/ml (0-900) H 02/23/18 14:10 Total Protein 7.4 G/DL (6.3-8.2) 02/24/18 04:56 Albumin 3.6 g/dL (3.5-5.0) 02/24/18 04:56 Globulin 3.8 gm/dL (2.2-3.9) 02/24/18 04:56 Albumin/Globulin Ratio 1.0 (1.0-2.1) 02/24/18 04:56 Triglycerides 99 mg/DL (0-149) 02/24/18 04:56 Cholesterol 133 mg/dL (0-199) 02/24/18 04:56 LDL Cholesterol Direct 81 mg/dL (0-129) 02/24/18 04:56 HDL Cholesterol 28 MG/DL (30-70) L 02/24/18 04:56 Lipase 73 U/L (23-300) 02/23/18 14:10 TSH 3rd Generation 0.68 mIU/ML (0.46-4.68) 02/24/18 04:56 Urine Color Yellow (YELLOW) 02/23/18 14:50 Urine Clarity Cloudy (Clear) 02/23/18 14:50 Urine pH 5.0 (5.0-8.0) 02/23/18 14:50 Ur Specific [place] 1.025 (1.003-1.030) 02/23/18 14:50 Urine Protein 30 mg/dL (NEGATIVE) 02/23/18 14:50 Urine Glucose (UA) Neg mg/dL (Normal) 02/23/18 14:50 Urine Ketones Negative mg/dL (NEGATIVE) 02/23/18 14:50 Urine Blood Moderate (NEGATIVE) 02/23/18 14:50 Urine Nitrate Negative (NEGATIVE) 02/23/18 14:50 Urine Bilirubin Negative (NEGATIVE) 02/23/18 14:50 Urine Urobilinogen 0.2-1.0 mg/dL (0.2-1.0) 02/23/18 14:50 Ur Leukocyte Esterase Mod Mei/uL (Negative) 02/23/18 14:50 Urine RBC (Auto) 16 /hpf (0-3) H 02/23/18 14:50 Urine Microscopic WBC 65 /hpf (0-5) H 02/23/18 14:50 Urine Bacteria Rare (<OCC) 02/23/18 14:50 Discharge Exam - Head Exam Head Exam: NORMAL INSPECTION Discharge Plan - Follow Up Plan Condition: STABLE Disposition: HOME/ ROUTINE Instructions: Weakness (ED)
--- NOTE | 2018-02-27 16:33 | PQF GENQUE ---
This form is a permanent part of the medical record DR. DELGADO SEMAN: D/C SUMMARY IN DRAFT: NO DIAGNOSIS. COULD YOU CLARIFY THE PRINCIPAL DIAGNOSIS. ED DOCUMENTATION : PATIENT HAD ELEVATED TROPONINS AND NSTEMI. COULD YOU PLEASE CLARIFY IF NSTEMI WAS RULED IN OR OUT. Clarification of your documentation is requested to better reflect the severity of illness and intensity of treatment of your patient. Indicators present [] Specify: [] [] Specify: [] [] Specify: [] [] Specify: [] Location in the medical record that reflects the above clinical findings: [] Treatment Provided: [] PHYSICIAN'S RESPONSE Based on your medical judgment of the clinical indicators outlined above please clarify the following: [] Practitioner response [] If unable to determine, please check the box, sign and date. Present On Admission (POA) Indicator: [] Present at the time of admission [] Not present at the time of admission [] Clinically Undetermined In responding to this query, please exercise your independent professional judgment. The fact that a question is asked does not imply that any particular answer is desired or expected. Thank you for your clarification on this documentation. If you have any questions please call:[ ] * Thank you, * DHAVAL MUÑOZ [[phone] crate opener [place]
== END 2018-02-25 18:40 | disposition home or self-care (01) | DRG 282 ==
LOC: H.ER 12:44 → H.ERHOLD 17:09 → H.TEL 20:29
PROVIDERS: ADMIT Internal Medicine; ATTEND Internal Medicine
DX: I21.4 Non-ST elevation (NSTEMI) myocardial infarction (principal); I48.2 Chronic atrial fibrillation; E78.00 Pure hypercholesterolemia, unspecified; E78.5 Hyperlipidemia, unspecified; G93.89 Other specified disorders of brain; H40.9 Unspecified glaucoma; I10 Essential (primary) hypertension; I67.1 Cerebral aneurysm, nonruptured; J45.909 Unspecified asthma, uncomplicated; Z79.01 Long term (current) use of anticoagulants; Z79.82 Long term (current) use of aspirin; Z86.79 Personal history of other diseases of the circulatory system; Z87.891 Personal history of nicotine dependence; H26.9 Unspecified cataract; Z79.899 Other long term (current) drug therapy

== ENCOUNTER 2018-04-06 15:07 | Observation (INO) | payer MEDICARE ==
[2018-04-06 15:08] VITALS: BMI 23.6
--- NOTE | 2018-04-06 16:08 | ED PDOC ---
Upper Extremity Pain/Injury Time Seen by Provider: 04/06/18 15:34 Chief Complaint (Nursing): Upper Extremity Problem/Injury Chief Complaint (Provider): Left shoulder pain and back pain History Per: Patient, Other (Friend) History/Exam Limitations: no limitations Onset/Duration Of Symptoms: Days Current Symptoms Are (Timing): Still Present Additional Complaint(s): 82 year old male with a past medical history of aneurysm, hypertension, cerebral hemorrhage, A-fib, hypercholesterolemia, and myocardial infarction who presents to the emergency department accompanied by a friend who states patient has some memory problem. Patient has left shoulder pain and left upper back pain for a couple of months. States pain worsened the last 3-4 days and became severe because patient cries. Pain is also associated with chest pain, mild shortness of breath, and nausea. Denies any further medical complaints. Past Medical History Reviewed: Historical Data, Nursing Documentation, Vital Signs Vital Signs: Last Vital Signs Temp 97.4 F L 04/06/18 15:27 Pulse 94 H 04/06/18 15:27 Resp 18 04/06/18 15:27 BP 155/94 H 04/06/18 15:27 Pulse Ox 99 04/06/18 15:27 - Medical History PMH: Asthma (SEASONAL), Atrial Fibrillation, Cardia Arrhythmia, Cardiac Aneurysm , HTN, Hypercholesterolemia Denies: Chronic Kidney Disease Other PMH: cerebral hemorrhage and myocardial infarction - Surgical History Other surgeries: Aneurysm coil - Family History Family History: States: No Known Family Hx - Social History Current smoker - smoking cessation education provided: No Ex-Smoker (has not smoked in the last 12 months): Yes Alcohol: None Drugs: Denies - Immunization History Hx Tetanus Toxoid Vaccination: Yes Hx Influenza Vaccination: Yes Hx Pneumococcal Vaccination: Yes - Home Medications Home Medications: Ambulatory Orders Medication Instructions Recorded Albuterol HFA [Ventolin HFA 90 2 puff IH Q6 PRN 02/23/18 mcg/actuation (8 g)] Aspirin [Ecotrin] 81 mg PO DAILY 02/23/18 Cholecalciferol (Vitamin D3) 2,000 unit PO DAILY 02/23/18 [Vitamin D3] Cu/Se/Vit A/Vit C/Vit E/Zinc 1 tab PO DAILY 02/23/18 [Ocuvite] Esomeprazole Magnesium [Nexium] 40 mg PO DAILY 02/23/18 Fenofibrate Nanocrystallized 145 mg PO DAILY 02/23/18 [Fenofibrate] Ginkgo Biloba 40 mg PO DAILY 02/23/18 Glucosa Lerma 2Kcl/Chondroitin Lerma 1 cap PO DAILY 02/23/18 [Glucosamine & Chondroitin Cap] Levocetirizine Dihydrochloride 5 mg PO HS 02/23/18 [Xyzal] Montelukast [Singulair] 10 mg PO HS 02/23/18 Windsor-3S/Dha/Epa/Fish Oil [Fish 1 cap PO DAILY 02/23/18 Oil Windsor-3 Softgel] Simvastatin [Zocor] 20 mg PO HS 02/23/18 Spironolactone [Aldactone] 100 mg PO DAILY 02/23/18 Tamsulosin [Flomax] 0.8 mg PO HS 02/23/18 Vitamin B Complex [Super B-50 1 cap PO DAILY 02/23/18 Complex] Brinzolamide [Azopt] 1 drop OU Q12 04/06/18 Fluticasone Nasal [Flonase] 2 spray DEUCE DAILY PRN 04/06/18 Metoprolol Succinate [Toprol XL] 50 mg PO DAILY 04/06/18 Warfarin [Coumadin] 2 mg PO SUSA 04/06/18 Warfarin [Coumadin] 3 mg PO MOTUWETHFR 04/06/18 levETIRAcetam [Keppra] 250 mg PO HS 04/06/18 - Allergies Allergies/Adverse Reactions: Allergies Allergy/AdvReac Type Severity Reaction Status Date / Time codeine Allergy Verified 02/13/16 11:01 Tricyclic Compounds Allergy Verified 02/13/16 11:01 vancomycin Allergy Verified 02/13/16 11:01 Review of Systems ROS Statement: Except As Marked, All Systems Reviewed And Found Negative (As per HPI, otherwise negative) Cardiovascular: Positive for: Chest Pain (left upper) Respiratory: Positive for: Shortness of Breath Gastrointestinal: Positive for: Nausea Musculoskeletal: Positive for: Shoulder Pain (Left), Back Pain (Left upper) Physical Exam - Reviewed Nursing Documentation Reviewed: Yes Vital Signs Reviewed: Yes - Physical Exam Appears: Positive for: Non-toxic, In Acute Distress (Mild painful) Head Exam: Positive for: NORMAL INSPECTION Skin: Positive for: Warm, Dry Cardiovascular/Chest: Positive for: Irregularly Irregular. Negative for: Murmur Respiratory: Positive for: Normal Breath Sounds. Negative for: Rales, Rhonchi, Wheezing Extremity: Positive for: Normal ROM (Full ROM of the left shoulder), Other (5/5 strength of all extremities. ). Negative for: Tenderness (No palpable tenderness to palpation of the left shoulder, neck, or back region. ) Neurologic/Psych: Positive for: Alert, Oriented (x3), Mood/Affect (Anxious) - Laboratory Results Result Diagrams: 04/06/18 16:03 04/06/18 16:03 - ECG O2 Sat by Pulse Oximetry: 99 (RA) Pulse Ox Interpretation: Normal Medical Decision Making Medical Decision Making: Time: 155 Initial impression: Left shoulder and chest pain. Differential include but not limited to acute coronary syndrome (ACS), pulmonary embolism (PE), aortic dissection, shoulder strain, and arthritis. Initial plan: EKG Labs ordered Blood work Chest portable x-ray Reevaluation --EKG: Atrial fib at 86 bpm. T wave inversions at 1 & AVL and 1 mm elevation in AVR. Similar to EKG in February 2018 and August 2017. Time: 1631 --Chest x-ray LUNGS: No active pulmonary disease. PLEURA: No significant pleural effusion identified, no pneumothorax apparent. CARDIOVASCULAR: Cardiomegaly-similar mild tortuosity and prominence of the thoracic aorta- similar OSSEOUS STRUCTURES: Bilateral shoulder arthrosis VISUALIZED UPPER ABDOMEN: Ligation to the right hemidiaphragm unchanged. OTHER FINDINGS: None. IMPRESSION: No interval cardiopulmonary pathology appreciated. Time: 1800 --Angiography Dissection CT Time: 2005 --Cardiology consult: Dr. Giuseppe Sherwood MD --ECHO COMP W/ M MODE/C FLOW/DOP Time: 2058 --Angio CT Accession No. : [id number] Patient Name / ID : YADI eSgura / [id number] Exam Date : 04/06/2018 18:39:22 ( Approved ) Study Comment : Sex / Age : M / 82Y Creator : MIGUELANGEL BRAGA Dictator : Telemarketing Manager : Sales Trader : MIGUELANGEL BRAGA Approver2 : Report Date : 04/06/2018 20:59:00 My Comment : [facility] Division of Radiology [address] [facility] [address] Tel. no. Patient Name: FLEX GRULLON Pt. Address: [address] [place] [address]. Rec #: [id number] [place] [address]: Drew RUTHERFORD ,Parris Hernandez Pt Order Location: [facility] : 1935 Male Age: 82 Order #: [id number] Reason for exam: chest pain radiating to back CT Scan ANGIOGRAPHY DISECTION PROTOCOL Exam Date: 04/06/18 This imaging exam was performed at [facility] ADDENDUM Addendum created by Miguelangel Braga MD on 04/06/2018 9:19:10 PM EDT Findings were discussed with Parris Cook at 9:19 PM EDT on 04/06/2018. Initial report created on 04/06/2018 8:59:55 PM EDT EXAM: CT Angiography Chest Without and With Intravenous Contrast CLINICAL HISTORY: 82 years old, male; Pain; Other: Left shoulder, and left upper back; Chest pain; Type not specified; Additional info: Chest pain radiating to back TECHNIQUE: Axial computed tomographic angiography images of the chest without and with intravenous contrast using pulmonary embolism protocol. All CT scans at this facility use one or more dose reduction techniques, viz.: automated exposure control; ma/kV adjustment per patient size (including targeted exams where dose is matched to indication; i.e. head); or iterative reconstruction technique. MIP reconstructed images were created and reviewed. Coronal and sagittal reformatted images were created and reviewed. CONTRAST: 90 mL of VISIPAQUE 320 administered intravenously. COMPARISON: There are no prior studies for comparison. FINDINGS: Heart, Aorta and Pulmonary arteries: The heart is enlarged. There is thrombus in the left atrial appendage. Left ventricular wall appears thickened. There are coronary artery calcifications.There is trace fluid in pericardial recesses. Ascending aorta is mildly dilated, 4 cm in maximal diameter. There is tapering at the arch. Descending aorta is mildly tortuous. There is no thoracic aortic dissection. There is perfusion of the 3 arch vessels.There are no pulmonary emboli. Lungs and Pleural spaces: Trachea and main bronchi are patent. The lungs are well inflated. There is no focal consolidation. There is dependent atelectasis bilaterally. There is left retrocardiac atelectasis. There is minimal scarring at the lung bases. There are no effusions. Mediastinum: There are no pathologically enlarged mediastinal or hilar nodes. The esophagus is unremarkable. Thyroid: Thyroid is unremarkable Bones/joints: Bony structures are osteopenic with degenerative change. There are mild compression deformities at T3, a T4, T6, T8 and T10 Soft tissues: unremarkable Upper abdomen: Refer to following report for abdominal findings IMPRESSION: Cardiomegaly with thrombus in the left atrial appendage, no pulmonary emboli ; mild aneurysmal dilatation of the ascending aorta, no dissection; atherosclerotic disease; no focal pneumonia Additional nonemergent findings as described above. EXAM: CT Angiography Abdomen and Pelvis Without and With Intravenous Contrast EXAM DATE/TIME: 04/06/2018 6:01 PM CLINICAL HISTORY: 82 years old, male; Pain; Other: Left shoulder, and left upper back; Chest pain; Type not specified; Additional info: Chest pain radiating to back TECHNIQUE: Axial computed tomographic angiography images of the abdomen and pelvis without and with intravenous contrast. All CT scans at this facility use one or more dose reduction techniques, viz.: automated exposure control; ma/kV adjustment per patient size (including targeted exams where dose is matched to indication; i.e. head); or iterative reconstruction technique. MIP reconstructed images were created and reviewed. Coronal and sagittal reformatted images were created and reviewed. CONTRAST: 90 mL of VISIPAQUE 320 administered intravenously. COMPARISON: There are no prior studies for comparison. FINDINGS: VASCULATURE: Aorta: There are atherosclerotic calcifications in the abdominal aorta and iliacs. Aorta is mildly tortuous. There is no abdominal aortic aneurysm. There is perfusion of all major abdominal aortic branches. There is perfusion of the iliac arteries. The There is calcified plaque at the origin of the celiac artery without narrowing. There is plaque with minimal irregularity of the proximal right renal artery. There is plaque without stenosis at the origin of the left renal artery. Celiac trunk and mesenteric arteries: See above. Renal arteries: See above. Iliac arteries: See above. Lung bases: Refer to prior report for chest findings ABDOMEN: Liver: There is fatty infiltration of the liver. There is a small granuloma in the liver. Gallbladder and bile ducts: Gallbladder is partially distended with multiple calcified stones. There is no ductal dilatation. Pancreas: Pancreas is mildly atrophic. Spleen: unremarkable Adrenals: There is nodular thickening of both adrenals. Kidneys and ureters: There small renal cysts. Kidneys and ureters are otherwise unremarkable. Stomach and bowel: Stomach is distended with an air-fluid level. Rotation is normal. There is no small bowel obstruction. Terminal ileum is unremarkable. Appendix is not visualized. There is no pericecal inflammation.Colon is incompletely distended which limits evaluation.. PELVIS: Appendix: unremarkable Bladder: Bladder is incompletely distended. There is mild bladder wall thickening. Reproductive: The prostate is enlarged. Seminal vesicles are unremarkable. ABDOMEN and PELVIS: Intraperitoneal space: There is no free air or free fluid. Bones/joints: Bony structures are osteopenic. There are degenerative changes. There is a compression fracture L1. There is mild wedging L3 and L4. Soft tissues: unremarkable Lymph nodes: There is no pathologic adenopathy. IMPRESSION: No abdominal aortic aneurysm or dissection; fatty liver; gallstones; enlarged prostate; compression fractures Addendum Dictated By: Miguelangel Braga MD Addendum Dictated Date Time:04/06/18 Addendum Signed by:Miguelangel Braga MD Addendum signed Date Time: 04/06/182118 Addendum Transcribed By: SYLVIA Addendum Transcribed Date Time: 04/06/18 LESLY/THOMAS EXAM: CT Angiography Chest Without and With Intravenous Contrast CLINICAL HISTORY: 82 years old, male; Pain; Other: Left shoulder, and left upper back; Chest pain; Type not specified; Additional info: Chest pain radiating to back TECHNIQUE: Axial computed tomographic angiography images of the chest without and with intravenous contrast using pulmonary embolism protocol. All CT scans at this facility use one or more dose reduction techniques, viz.: automated exposure control; ma/kV adjustment per patient size (including targeted exams where dose is matched to indication; i.e. head); or iterative reconstruction technique. MIP reconstructed images were created and reviewed. Coronal and sagittal reformatted images were created and reviewed. CONTRAST: 90 mL of VISIPAQUE 320 administered intravenously. COMPARISON: There are no prior studies for comparison. FINDINGS: Heart, Aorta and Pulmonary arteries: The heart is enlarged. There is thrombus in the left atrial appendage. Left ventricular wall appears thickened. There are coronary artery calcifications.There is trace fluid in pericardial recesses. Ascending aorta is mildly dilated, 4 cm in maximal diameter. There is tapering at the arch. Descending aorta is mildly tortuous. There is no thoracic aortic dissection. There is perfusion of the 3 arch vessels.There are no pulmonary emboli. Lungs and Pleural spaces: Trachea and main bronchi are patent. The lungs are well inflated. There is no focal consolidation. There is dependent atelectasis bilaterally. There is left retrocardiac atelectasis. There is minimal scarring at the lung bases. There are no effusions. Mediastinum: There are no pathologically enlarged mediastinal or hilar nodes. The esophagus is unremarkable. Thyroid: Thyroid is unremarkable Bones/joints: Bony structures are osteopenic with degenerative change. There are mild compression deformities at T3, a T4, T6, T8 and T10 Soft tissues: unremarkable Upper abdomen: Refer to following report for abdominal findings IMPRESSION: Cardiomegaly with thrombus in the left atrial appendage, no pulmonary emboli ; mild aneurysmal dilatation of the ascending aorta, no dissection; atherosclerotic disease; no focal pneumonia Additional nonemergent findings as described above. FINDINGS: Heart, Aorta and Pulmonary arteries: The heart is enlarged. There is thrombus in the left atrial appendage. Left ventricular wall appears thickened. There are coronary artery calcifications.There is trace fluid in pericardial recesses. Ascending aorta is mildly dilated, 4 cm in maximal diameter. There is tapering at the arch. Descending aorta is mildly tortuous. There is no thoracic aortic dissection. There is perfusion of the 3 arch vessels.There are no pulmonary emboli. Lungs and Pleural spaces: Trachea and main bronchi are patent. The lungs are well inflated. There is no focal consolidation. There is dependent atelectasis bilaterally. There is left retrocardiac atelectasis. There is minimal scarring at the lung bases. There are no effusions. Mediastinum: There are no pathologically enlarged mediastinal or hilar nodes. The esophagus is unremarkable. Thyroid: Thyroid is unremarkable Bones/joints: Bony structures are osteopenic with degenerative change. There are mild compression deformities at T3, a T4, T6, T8 and T10 Soft tissues: unremarkable ABDOMEN: Liver: There is fatty infiltration of the liver. There is a small granuloma in the liver. Gallbladder and bile ducts: Gallbladder is partially distended with multiple calcified stones. There is no ductal dilatation. Pancreas: Pancreas is mildly atrophic. Spleen: unremarkable Adrenals: There is nodular thickening of both adrenals. Kidneys and ureters: There small renal cysts. Kidneys and ureters are otherwise unremarkable. Stomach and bowel: Stomach is distended with an air-fluid level. Rotation is normal. There is no small bowel obstruction. Terminal ileum is unremarkable. Appendix is not visualized. There is no pericecal inflammation.Colon is incompletely distended which limits evaluation.. PELVIS: Appendix: unremarkable Bladder: Bladder is incompletely distended. There is mild bladder wall thickening. Reproductive: The prostate is enlarged. Seminal vesicles are unremarkable. ABDOMEN and PELVIS: Intraperitoneal space: There is no free air or free fluid. Bones/joints: Bony structures are osteopenic. There are degenerative changes. There is a compression fracture L1. There is mild wedging L3 and L4. Soft tissues: unremarkable Lymph nodes: There is no pathologic adenopathy. IMPRESSION: No abdominal aortic aneurysm or dissection; fatty liver; gallstones ; enlarged prostate; compression fractures Time: 2004 --Admit to hospital routine: As observation in telemetry for chest pain and aortic stenosis under the care of Dr. Jhonathan Sampson MD [address] Sherwood findings of CT, specifically thrombus within atrial appendage. No additional recommendations at this time. Scribe Attestation: Documented by Melanie Poon, acting as a scribe for Parris Russell MD Provider Scribe Attestation: All medical record entries made by the Scribe were at my direction and personally dictated by me. I have reviewed the chart and agree that the record accurately reflects my personal performance of the history, physical exam, medical decision making, and the department course for this patient. I have also personally directed, reviewed, and agree with the discharge instructions and disposition. Disposition - Clinical Impression Clinical Impression: Chest pain, A-fib Counseled Patient/Family Regarding: Studies Performed, Diagnosis - Disposition Disposition Time: 20:00 Condition: FAIR - Pt Status Changed To: Hospital Disposition Of: Observation - POA Present On Arrival: None
[2018-04-06 16:11] LABS: BASO % 0.6 % (0.0-2.0); EOS % 0.4 % (0.0-4.0); HEMOGLOBIN 15.7 g/dL (12.0-18.0); LYMPH # 1.5 K/uL (1.0-4.3); MEAN CELL VOLUME 95.8 fl (80.0-94.0); MEAN CORPUSCULAR HEMOGLOBIN 32.6 pg (27.0-31.0); MEAN CORPUSCULAR HGB CONC 34.1 g/dL (33.0-37.0); MEAN PLATELET VOLUME 8.1 fl (7.2-11.7); MONO # 0.6 K/uL (0.0-0.8); MONO % 6.7 % (0.0-10.0); NEUT # 6.2 K/uL (1.8-7.0); NEUT % 74.3 % (50.0-75.0); RBC 4.82 Mil/uL (4.40-5.90); RED CELL DISTRIBUTION WIDTH 13.8 % (11.5-14.5); WHITE BLOOD COUNT 8.3 K/uL (4.8-10.8)
[2018-04-06 16:22] LABS: INR 2.5 (0.9-1.2); PARTIAL THROMBOPLASTIN TIME 37.1 Seconds (25.6-37.1); PROTHROMBIN TIME 27.9 Seconds (9.8-13.1)
[2018-04-06 16:23] LABS: ALB/GLOB RATIO 1.1 (1.0-2.1); ALBUMIN 4.1 g/dL (3.5-5.0); ALT/SGPT 39 U/L (21-72); AST/SGOT 39 U/L (17-59); BLOOD UREA NITROGEN 22 mg/dl (9-20); CALCIUM 10.2 mg/dL (8.4-10.2); GFR AFRICAN-AMERICAN > 60; GFR NON-AFRICAN AMERICAN > 60; LIPASE 150 U/L (23-300)
--- NOTE | 2018-04-06 16:33 | RAD ---
HISTORY: chest pain COMPARISON: 02/23/2018 and 09/01/2017 FINDINGS: LUNGS: No active pulmonary disease. PLEURA: No significant pleural effusion identified, no pneumothorax apparent. CARDIOVASCULAR: Cardiomegaly-similar mild tortuosity and prominence of the thoracic aorta-similar OSSEOUS STRUCTURES: Bilateral shoulder arthrosis VISUALIZED UPPER ABDOMEN: Ligation to the right hemidiaphragm unchanged. OTHER FINDINGS: None. IMPRESSION: No interval cardiopulmonary pathology appreciated.
[2018-04-06 16:34] LABS: B-TYPE NATRIURETIC PEPTIDE 2510 pg/ml (0-900)
[2018-04-06] MEDS ORDERED: Iodixanol 320 MG/ML 100 ML BOTTLE IV ONE (18:08)
[2018-04-06] MEDS ORDERED: Sodium Chloride 0.9% 100 ML ONE (18:08)
[2018-04-06 18:30] LABS: SQUAMOUS EPITHIAL < 1 /hpf (0-5); URINE BILIRUBIN NEGATIVE (NEGATIVE); URINE BLOOD NEGATIVE (NEGATIVE); URINE CLARITY SLIGHTY-CLOUDY (Clear); URINE COLOR YELLOW (YELLOW); URINE GLUCOSE (UA) NEG (Normal); URINE LEUKOCYTE ESTERASE TRACE Leu/uL (Negative); URINE PROTEIN 30 mg/dL (NEGATIVE); URINE UROBILINOGEN 0.2-1.0 mg/dL (0.2-1.0)
--- NOTE | 2018-04-06 21:00 | CT ---
EXAM: CT Angiography Chest Without and With Intravenous Contrast CLINICAL HISTORY: 82 years old, male; Pain; Other: Left shoulder, and left upper back; Chest pain; Type not specified; Additional info: Chest pain radiating to back TECHNIQUE: Axial computed tomographic angiography images of the chest without and with intravenous contrast using pulmonary embolism protocol. All CT scans at this facility use one or more dose reduction techniques, viz.: automated exposure control; ma/kV adjustment per patient size (including targeted exams where dose is matched to indication; i.e. head); or iterative reconstruction technique. MIP reconstructed images were created and reviewed. Coronal and sagittal reformatted images were created and reviewed. CONTRAST: 90 mL of VISIPAQUE 320 administered intravenously. COMPARISON: There are no prior studies for comparison. FINDINGS: Heart, Aorta and Pulmonary arteries: The heart is enlarged. There is thrombus in the left atrial appendage. Left ventricular wall appears thickened. There are coronary artery calcifications.There is trace fluid in pericardial recesses. Ascending aorta is mildly dilated, 4 cm in maximal diameter. There is tapering at the arch. Descending aorta is mildly tortuous. There is no thoracic aortic dissection. There is perfusion of the 3 arch vessels.There are no pulmonary emboli. Lungs and Pleural spaces: Trachea and main bronchi are patent. The lungs are well inflated. There is no focal consolidation. There is dependent atelectasis bilaterally. There is left retrocardiac atelectasis. There is minimal scarring at the lung bases. There are no effusions. Mediastinum: There are no pathologically enlarged mediastinal or hilar nodes. The esophagus is unremarkable. Thyroid: Thyroid is unremarkable Bones/joints: Bony structures are osteopenic with degenerative change. There are mild compression deformities at T3, a T4, T6, T8 and T10 Soft tissues: unremarkable Upper abdomen: Refer to following report for abdominal findings IMPRESSION: Cardiomegaly with thrombus in the left atrial appendage, no pulmonary emboli; mild aneurysmal dilatation of the ascending aorta, no dissection; atherosclerotic disease; no focal pneumonia Additional nonemergent findings as described above. EXAM: CT Angiography Abdomen and Pelvis Without and With Intravenous Contrast EXAM DATE/TIME: 04/06/2018 6:01 PM CLINICAL HISTORY: 82 years old, male; Pain; Other: Left shoulder, and left upper back; Chest pain; Type not specified; Additional info: Chest pain radiating to back TECHNIQUE: Axial computed tomographic angiography images of the abdomen and pelvis without and with intravenous contrast. All CT scans at this facility use one or more dose reduction techniques, viz.: automated exposure control; ma/kV adjustment per patient size (including targeted exams where dose is matched to indication; i.e. head); or iterative reconstruction technique. MIP reconstructed images were created and reviewed. Coronal and sagittal reformatted images were created and reviewed. CONTRAST: 90 mL of VISIPAQUE 320 administered intravenously. COMPARISON: There are no prior studies for comparison. FINDINGS: VASCULATURE: Aorta: There are atherosclerotic calcifications in the abdominal aorta and iliacs. Aorta is mildly tortuous. There is no abdominal aortic aneurysm. There is perfusion of all major abdominal aortic branches. There is perfusion of the iliac arteries. The There is calcified plaque at the origin of the celiac artery without narrowing. There is plaque with minimal irregularity of the proximal right renal artery. There is plaque without stenosis at the origin of the left renal artery. Celiac trunk and mesenteric arteries: See above. Renal arteries: See above. Iliac arteries: See above. Lung bases: Refer to prior report for chest findings ABDOMEN: Liver: There is fatty infiltration of the liver. There is a small granuloma in the liver. Gallbladder and bile ducts: Gallbladder is partially distended with multiple calcified stones. There is no ductal dilatation. Pancreas: Pancreas is mildly atrophic. Spleen: unremarkable Adrenals: There is nodular thickening of both adrenals. Kidneys and ureters: There small renal cysts. Kidneys and ureters are otherwise unremarkable. Stomach and bowel: Stomach is distended with an air-fluid level. Rotation is normal. There is no small bowel obstruction. Terminal ileum is unremarkable. Appendix is not visualized. There is no pericecal inflammation.Colon is incompletely distended which limits evaluation.. PELVIS: Appendix: unremarkable Bladder: Bladder is incompletely distended. There is mild bladder wall thickening. Reproductive: The prostate is enlarged. Seminal vesicles are unremarkable. ABDOMEN and PELVIS: Intraperitoneal space: There is no free air or free fluid. Bones/joints: Bony structures are osteopenic. There are degenerative changes. There is a compression fracture L1. There is mild wedging L3 and L4. Soft tissues: unremarkable Lymph nodes: There is no pathologic adenopathy. IMPRESSION: No abdominal aortic aneurysm or dissection; fatty liver; gallstones; enlarged prostate; compression fractures
[2018-04-06] MEDS ORDERED: Albuterol HFA 90 mcg/actuation (8 g) IH PRN (22:37)
[2018-04-07 05:30] LABS: HEMOGLOBIN 15.1 g/dL (12.0-18.0); MEAN CELL VOLUME 95.8 fl (80.0-94.0); MEAN CORPUSCULAR HEMOGLOBIN 32.9 pg (27.0-31.0); MEAN CORPUSCULAR HGB CONC 34.4 g/dL (33.0-37.0); RBC 4.58 Mil/uL (4.40-5.90); RED CELL DISTRIBUTION WIDTH 13.7 % (11.5-14.5); WHITE BLOOD COUNT 7.4 K/uL (4.8-10.8)
[2018-04-07 07:57] VITALS: TEMP 97.6
--- NOTE | 2018-04-07 08:30 | CP.PCM.HP ---
History of Present Illness - History of Present Illness History of Present Illness: 82 yo ,m, PMhx/o HTN, CVA, A fib, HLD, [place] presents c/o left suprascapular pain stared about 1 week not related with any particular event, that has been getting worse for the last 3 days. De denies fall , trauma, chest pain, n,v,d abd pain, dysuria, orthopnea, PND .Patient also c/o memory loss for about 6 months, but reports not imparment with ADL or IADL. Patient seen and examined bedside with Dr Sampson. Patient asymptomatic. 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 Present on Admission - Present on Admission Any Indicators Present on Admission: No History of DVT/PE: No History of Uncontrolled Diabetes: No Urinary Catheter: No Decubitus Ulcer Present: No Review of Systems - Review of Systems All systems: reviewed and no additional remarkable complaints except - Musculoskeletal Additional comments: left side suprascapular pain Past Patient History - Infectious Disease Hx of Infectious Diseases: None - Past Medical History & Family History Past Medical History?: Yes - Past Social History Alcohol: None Drugs: Denies - CARDIAC Hx Atrial Fibrillation: Yes Hx Cardia Arrhythmia: Yes Hx Hypercholesterolemia: Yes Hx Hypertension: Yes - PULMONARY Hx Asthma: Yes (SEASONAL) - NEUROLOGICAL Hx Neurological Disorder: Yes Other/Comment: Aneurysm, multiple - HEENT Hx HEENT Problems: Yes Hx Cataracts: Yes (Right with intraocular lens) Hx Glaucoma: Yes - RENAL Hx Chronic Kidney Disease: No - ENDOCRINE/METABOLIC Hx Endocrine Disorders: No - HEMATOLOGICAL/ONCOLOGICAL Hx Blood Disorders: No Hx AIDS: No Hx Blood Transfusions: No Hx Human Immunodeficiency Virus (HIV): No - INTEGUMENTARY Hx Dermatological Problems: Yes (PRE CANCEROUS LESIONS OVER BODY X6-REMOVED) - MUSCULOSKELETAL/RHEUMATOLOGICAL Hx Musculoskeletal Disorders: No Hx Falls: Yes - GASTROINTESTINAL Hx Gastrointestinal Disorders: No - GENITOURINARY/GYNECOLOGICAL Hx Genitourinary Disorders: Yes Hx Hematuria: Yes - PSYCHIATRIC Hx Psychophysiologic Disorder: No Hx Substance Use: No - SURGICAL HISTORY Hx Surgeries: Yes Hx Angioplasty: Yes (double) Hx Cataract Extraction: Yes (RIGHT) Other/Comment: STENT IN RIGHT LEG FROM CLOT FEBRUARY 2014. - ANESTHESIA Hx Anesthesia: Yes Hx Anesthesia Reactions: No Hx Malignant Hyperthermia: No Meds Allergies/Adverse Reactions: Allergies Allergy/AdvReac Type Severity Reaction Status Date / Time codeine Allergy SHORTNESS Verified 04/07/18 03:25 OF BREATH Tricyclic Compounds Allergy SHORTNESS Verified 04/07/18 03:25 OF BREATH vancomycin Allergy SHORTNESS Verified 04/07/18 03:25 OF BREATH Canteloupe, melons Allergy ITCHING Uncoded 04/07/18 03:25 Physical Exam - Constitutional Appears: Non-toxic, No Acute Distress - Head Exam Head Exam: ATRAUMATIC, NORMOCEPHALIC - Eye Exam Eye Exam: Normal appearance - ENT Exam ENT Exam: Mucous Membranes Moist - Neck Exam Neck exam: Positive for: Normal Inspection - Respiratory Exam Respiratory Exam: Clear to Auscultation Bilateral. absent: Rhonchi, Wheezes - Cardiovascular Exam Cardiovascular Exam: REGULAR RHYTHM, +S1, +S2 - GI/Abdominal Exam GI & Abdominal Exam: Normal Bowel Sounds, Soft. absent: Tenderness - Extremities Exam Extremities exam: Positive for: normal inspection. Negative for: pedal edema Additional comments: reproducible suprascapular pain. left shoulder no TD to palpation, ROM intact - Neurological Exam Neurological exam: Alert, Oriented x3 - Psychiatric Exam Psychiatric exam: Normal Affect, Normal Mood - Skin Skin Exam: Intact Results - Vital Signs Recent Vital Signs: Last Vital Signs Temp 97.6 F 04/07/18 07:57 Pulse 70 04/07/18 07:57 Resp 16 04/07/18 07:57 BP 131/79 04/07/18 07:57 Pulse Ox 97 04/07/18 07:57 - Labs Result Diagrams: 04/07/18 04:25 04/07/18 13:45 Labs: Laboratory Results - last 24 hr 04/06/18 04/06/18 04/06/18 16:03 16:03 16:03 WBC 8.3 RBC 4.82 Hgb 15.7 Hct 46.2 MCV 95.8 H MCH 32.6 H MCHC 34.1 RDW 13.8 Plt Count 208 MPV 8.1 Neut % (Auto) 74.3 Lymph % (Auto) 18.0 L Mill[place] % (Auto) 6.7 Eos % (Auto) 0.4 Baso % (Auto) 0.6 Neut # (Auto) 6.2 Lymph # (Auto) 1.5 Millard # (Auto) 0.6 Eos # (Auto) 0.0 Baso # (Auto) 0.0 ESR 6 PT 27.9 H INR 2.5 H APTT 37.1 D-Dimer, Quantitative 148 Sodium 140 Potassium 3.7 Chloride 100 Carbon Dioxide 24 Anion Gap 20 BUN 22 H Creatinine 1.0 Est GFR ( Amer) > 60 Est GFR (Non-Af Amer) > 60 Random Glucose 165 H Calcium 10.2 Phosphorus 2.5 Magnesium 1.1 L Total Bilirubin 0.5 AST 39 ALT 39 Alkaline Phosphatase 34 L Troponin I 0.0640 NT-Pro-B Natriuret Pep 2510 H Total Protein 7.8 Albumin 4.1 Globulin 3.7 Albumin/Globulin Ratio 1.1 Lipase 150 Urine Color Urine Clarity Urine pH Ur Specific [place] Urine Protein Urine Glucose (UA) Urine Ketones Urine Blood Urine Nitrate Urine Bilirubin Urine Urobilinogen Ur Leukocyte Esterase Urine RBC (Auto) Urine Microscopic WBC Ur Squamous Epith Cells 04/06/18 04/07/18 04/07/18 17:55 00:00 04:25 WBC 7.4 RBC 4.58 Hgb 15.1 Hct 43.9 MCV 95.8 H MCH 32.9 H MCHC 34.4 RDW 13.7 Plt Count 197 MPV Neut % (Auto) Lymph % (Auto) Mill[place] % (Auto) Eos % (Auto) Baso % (Auto) Neut # (Auto) Lymph # (Auto) [place] # (Auto) Eos # (Auto) Baso # (Auto) ESR PT INR APTT D-Dimer, Quantitative Sodium Potassium Chloride Carbon Dioxide Anion Gap BUN Creatinine Est GFR ( Amer) Est GFR (Non-Af Amer) Random Glucose Calcium Phosphorus Magnesium Total Bilirubin AST ALT Alkaline Phosphatase Troponin I 0.0870 NT-Pro-B Natriuret Pep Total Protein Albumin Globulin Albumin/Globulin Ratio Lipase Urine Color Yellow Urine Clarity Slighty-cloudy Urine pH 7.0 Ur Specific [place] 1.021 Urine Protein 30 Urine Glucose (UA) Neg Urine Ketones Negative Urine Blood Negative Urine Nitrate Negative Urine Bilirubin Negative Urine Urobilinogen 0.2-1.0 Ur Leukocyte Esterase Trace Urine RBC (Auto) 3 Urine Microscopic WBC 7 H Ur Squamous Epith Cells < 1 Assessment & Plan - Assessment and Plan (Free Text) Plan: Assessment/Plan 1) Chest pain To r/o ACS -reproducible posterior side suprascapular -troponin x 3 neg -EKG no acute findings -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 CT did not showed cardiac thrombus. 2) HTN c/w home medications 3) Chronic A fib -c/w home medications -c/w Coumadin 4) DVT prophylasis -on coumadin
[2018-04-07] MEDS: Dorzolamide 2% Ophth Soln OU SCH ×2 (08:32→12:35)
[2018-04-07] MEDS ORDERED: Patient's Own Med (Brinzolamide [Azopt] 1 DROP) OU SCH (09:00)
[2018-04-07] MEDS ORDERED: Pantoprazole 40 mg EC Tab PO SCH (09:00)
[2018-04-07] MEDS ORDERED: Patient's Own Med (Vitamin B Complex [Super B-50 Complex] 1 CAP) PO SCH (09:00)
[2018-04-07] MEDS ORDERED: Patient's Own Med (Cu/Se/Vit A/Vit C/Vit E/Zinc [Ocuvite] 1 TAB) PO SCH (09:00)
[2018-04-07] MEDS ORDERED: Multivitamin Vitamin B Complex (Nephro-Vite) Tab PO SCH (09:00)
[2018-04-07] MEDS ORDERED: Cholecalciferol 1,000 INTLU TAB PO SCH (09:00)
[2018-04-07] MEDS ORDERED: GINKGO BILOBA 40 MG PO SCH (09:00)
[2018-04-07] MEDS ORDERED: [UNRECOGNIZED DRUG - OTHER] PO SCH (09:00)
[2018-04-07] MEDS ORDERED: Metoprolol Succinate 50 mg XL Tab PO SCH (09:00)
[2018-04-07] MEDS ORDERED: Omega-3-Acid Ethyl Esters 1 GM Cap PO SCH ×2 (09:00→09:15)
[2018-04-07 09:52] LABS: PROTHROMBIN TIME 29.7 Seconds (9.8-13.1)
[2018-04-07 09:53] LABS: INR 2.6 (0.9-1.2)
--- NOTE | 2018-04-07 11:03 | CP.PCM.CON ---
History of Present Illness - History of Present Illness History of Present Illness: 82 y/o [place] male admitted with pain @ Left cervical spine area / Left scapula area worse with movement of left arm and palpation Angio Ct: possible thrombus in Left atrial appendage PMH: Chronic Atrial Fibrillation Cerebral Hemorrhage / aneurysm Aug 2017 Asthma HTN Hyperlipidemia Past Patient History - Infectious Disease Hx of Infectious Diseases: None - Past Medical History & Family History Past Medical History?: Yes - Past Social History Alcohol: None Drugs: Denies - CARDIAC Hx Atrial Fibrillation: Yes Hx Cardia Arrhythmia: Yes Hx Hypercholesterolemia: Yes Hx Hypertension: Yes - PULMONARY Hx Asthma: Yes (SEASONAL) - NEUROLOGICAL Hx Neurological Disorder: Yes Other/Comment: Aneurysm, multiple - HEENT Hx HEENT Problems: Yes Hx Cataracts: Yes (Right with intraocular lens) Hx Glaucoma: Yes - RENAL Hx Chronic Kidney Disease: No - ENDOCRINE/METABOLIC Hx Endocrine Disorders: No - HEMATOLOGICAL/ONCOLOGICAL Hx Blood Disorders: No Hx AIDS: No Hx Blood Transfusions: No Hx Human Immunodeficiency Virus (HIV): No - INTEGUMENTARY Hx Dermatological Problems: Yes (PRE CANCEROUS LESIONS OVER BODY X6-REMOVED) - MUSCULOSKELETAL/RHEUMATOLOGICAL Hx Musculoskeletal Disorders: No Hx Falls: Yes - GASTROINTESTINAL Hx Gastrointestinal Disorders: No - GENITOURINARY/GYNECOLOGICAL Hx Genitourinary Disorders: Yes Hx Hematuria: Yes - PSYCHIATRIC Hx Psychophysiologic Disorder: No Hx Substance Use: No - SURGICAL HISTORY Hx Surgeries: Yes Hx Angioplasty: Yes (double) Hx Cataract Extraction: Yes (RIGHT) Other/Comment: STENT IN RIGHT LEG FROM CLOT FEBRUARY 2014. - ANESTHESIA Hx Anesthesia: Yes Hx Anesthesia Reactions: No Hx Malignant Hyperthermia: No Meds Allergies/Adverse Reactions: Allergies Allergy/AdvReac Type Severity Reaction Status Date / Time codeine Allergy SHORTNESS Verified 04/07/18 03:25 OF BREATH Tricyclic Compounds Allergy SHORTNESS Verified 04/07/18 03:25 OF BREATH vancomycin Allergy SHORTNESS Verified 04/07/18 03:25 OF BREATH Canteloupe, melons Allergy ITCHING Uncoded 04/07/18 03:25 - Medications Medications: Current Medications Acetaminophen (Tylenol 325mg Tab) 650 mg PO Q6 PRN PRN Reason: Pain, Mild (1-3) Last Admin: 04/06/18 23:14 Dose: 650 mg Albuterol (Ventolin Hfa 90 Mcg/Actuation (8 G)) 2 puff IH Q6 PRN PRN Reason: Shortness of Breath Aspirin (Ecotrin) 81 mg PO DAILY [facility] Last Admin: 04/07/18 08:29 Dose: 81 mg Atorvastatin Calcium (Lipitor) 10 mg PO HS [facility] Last Admin: 04/06/18 23:15 Dose: 10 mg Cholecalciferol (Vitamin D) 2,000 intlu PO DAILY [facility] Last Admin: 04/07/18 08:32 Dose: 2,000 intlu Dorzolamide HCl (Trusopt) 1 drop OU TID [facility] Last Admin: 04/07/18 08:32 Dose: 1 drop Fenofibrate (Tricor) 145 mg PO DAILY [facility] Last Admin: 04/07/18 08:31 Dose: 145 mg Fluticasone Propionate (Flonase) 2 spr DEUCE DAILY PRN PRN Reason: Nasal congestion Levetiracetam (Keppra) 250 mg PO [facility] Last Admin: 04/06/18 23:16 Dose: 250 mg Lisinopril (Zestril) 2.5 mg PO DAILY [facility] Last Admin: 04/07/18 09:57 Dose: 2.5 mg Loratadine (Claritin) 10 mg PO [facility] Metoprolol Succinate (Toprol Xl) 50 mg PO DAILY [facility] Last Admin: 04/07/18 08:31 Dose: 50 mg Montelukast Sodium (Singulair) 10 mg PO [facility] Last Admin: 04/06/18 23:16 Dose: 10 mg Upvbt-9-Yvgm Ethyl Esters (Lovaza) 1 gm PO DAILY [facility] Last Admin: 04/07/18 09:56 Dose: 1 gm Pantoprazole Sodium (Protonix Ec Tab) 40 mg PO DAILY [facility] Last Admin: 04/07/18 08:30 Dose: 40 mg Spironolactone (Aldactone) 100 mg PO DAILY [facility] Last Admin: 04/07/18 08:28 Dose: 100 mg Tamsulosin HCl (Flomax) 0.8 mg PO [facility] Last Admin: 04/06/18 23:16 Dose: 0.8 mg Vitamin B Complex/Vit C/Folic Acid (Nephro-Sidney) 1 tab PO DAILY [facility] Last Admin: 04/07/18 08:30 Dose: 1 tab Warfarin Sodium (Coumadin) 2 mg PO SUSA [facility] PRN Reason: Protocol Physical Exam - Constitutional Appears: Well - Head Exam Head Exam: NORMAL INSPECTION - Eye Exam Eye Exam: Normal appearance - ENT Exam ENT Exam: Normal Exam - Neck Exam Neck exam: Positive for: Normal Inspection - Respiratory Exam Respiratory Exam: NORMAL BREATHING PATTERN - Cardiovascular Exam Cardiovascular Exam: Irregular Rhythm Results - Vital Signs Recent Vital Signs: Last Vital Signs Temp 97.6 F 04/07/18 07:57 Pulse 70 04/07/18 09:57 Resp 16 04/07/18 07:57 BP 131/79 04/07/18 09:57 Pulse Ox 97 04/07/18 07:57 - Labs Result Diagrams: 04/07/18 04:25 04/06/18 16:03 Labs: Laboratory Results - last 24 hr 04/06/18 04/06/18 04/06/18 16:03 16:03 16:03 WBC 8.3 RBC 4.82 Hgb 15.7 Hct 46.2 MCV 95.8 H MCH 32.6 H MCHC 34.1 RDW 13.8 Plt Count 208 MPV 8.1 Neut % (Auto) 74.3 Lymph % (Auto) 18.0 L Bennett % (Auto) 6.7 Eos % (Auto) 0.4 Baso % (Auto) 0.6 Neut # (Auto) 6.2 Lymph # (Auto) 1.5 Bennett # (Auto) 0.6 Eos # (Auto) 0.0 Baso # (Auto) 0.0 ESR 6 PT 27.9 H INR 2.5 H APTT 37.1 D-Dimer, Quantitative 148 Sodium 140 Potassium 3.7 Chloride 100 Carbon Dioxide 24 Anion Gap 20 BUN 22 H Creatinine 1.0 Est GFR ( Amer) > 60 Est GFR (Non-Af Amer) > 60 Random Glucose 165 H Calcium 10.2 Phosphorus 2.5 Magnesium 1.1 L Total Bilirubin 0.5 AST 39 ALT 39 Alkaline Phosphatase 34 L Troponin I 0.0640 NT-Pro-B Natriuret Pep 2510 H Total Protein 7.8 Albumin 4.1 Globulin 3.7 Albumin/Globulin Ratio 1.1 Lipase 150 Urine Color Urine Clarity Urine pH Ur Specific [place] Urine Protein Urine Glucose (UA) Urine Ketones Urine Blood Urine Nitrate Urine Bilirubin Urine Urobilinogen Ur Leukocyte Esterase Urine RBC (Auto) Urine Microscopic WBC Ur Squamous Epith Cells 04/06/18 04/07/18 04/07/18 17:55 00:00 04:25 WBC 7.4 RBC 4.58 Hgb 15.1 Hct 43.9 MCV 95.8 H MCH 32.9 H MCHC 34.4 RDW 13.7 Plt Count 197 MPV Neut % (Auto) Lymph % (Auto) Bennett % (Auto) Eos % (Auto) Baso % (Auto) Neut # (Auto) Lymph # (Auto) Bennett # (Auto) Eos # (Auto) Baso # (Auto) ESR PT INR APTT D-Dimer, Quantitative Sodium Potassium Chloride Carbon Dioxide Anion Gap BUN Creatinine Est GFR ( Amer) Est GFR (Non-Af Amer) Random Glucose Calcium Phosphorus Magnesium Total Bilirubin AST ALT Alkaline Phosphatase Troponin I 0.0870 NT-Pro-B Natriuret Pep Total Protein Albumin Globulin Albumin/Globulin Ratio Lipase Urine Color Yellow Urine Clarity Slighty-cloudy Urine pH 7.0 Ur Specific [place] 1.021 Urine Protein 30 Urine Glucose (UA) Neg Urine Ketones Negative Urine Blood Negative Urine Nitrate Negative Urine Bilirubin Negative Urine Urobilinogen 0.2-1.0 Ur Leukocyte Esterase Trace Urine RBC (Auto) 3 Urine Microscopic WBC 7 H Ur Squamous Epith Cells < 1 04/07/18 04/07/18 08:05 08:05 WBC RBC Hgb Hct MCV MCH MCHC RDW Plt Count MPV Neut % (Auto) Lymph % (Auto) Bennett % (Auto) Eos % (Auto) Baso % (Auto) Neut # (Auto) Lymph # (Auto) Bennett # (Auto) Eos # (Auto) Baso # (Auto) ESR PT 29.7 H INR 2.6 H APTT D-Dimer, Quantitative Sodium Potassium Chloride Carbon Dioxide Anion Gap BUN Creatinine Est GFR ( Amer) Est GFR (Non-Af Amer) Random Glucose Calcium Phosphorus Magnesium Total Bilirubin AST ALT Alkaline Phosphatase Troponin I 0.0670 NT-Pro-B Natriuret Pep Total Protein Albumin Globulin Albumin/Globulin Ratio Lipase Urine Color Urine Clarity Urine pH Ur Specific [place] Urine Protein Urine Glucose (UA) Urine Ketones Urine Blood Urine Nitrate Urine Bilirubin Urine Urobilinogen Ur Leukocyte Esterase Urine RBC (Auto) Urine Microscopic WBC Ur Squamous Epith Cells Assessment & Plan (1) A-fib Assessment and Plan: Angio CT : possible Thrombus in Left atrial appendage will get echo Status: Chronic Priority: Medium (2) Back pain Status: Acute
--- NOTE | 2018-04-07 11:10 | CARD ---
APPROVED REPORT EKG Measurement Heart [id number] <Conclusion> Atrial fibrillation Left axis deviation Voltage criteria for left ventricular hypertrophy Marked ST abnormality, possible lateral subendocardial injury Abnormal ECG
--- NOTE | 2018-04-07 11:46 | CP.PCM.PCO ---
Assessment/Plan - Assessment and Plan (Free Text) Assessment: Patient seen and examined Vital sings stable, denies chest pain, shortness of breath Troponins -x3 CT angiogram discussed with Dr Sherwood, no thrombus visualized Pt to continue coumadin therapy for afib and cardiac cleared for dc.
[2018-04-07 11:53] VITALS: BP 124/79; PULSE 79; RESP 18; O2SAT 98
[2018-04-07 15:10] LABS: ALBUMIN 3.5 g/dL (3.5-5.0); ALT/SGPT 41 U/L (21-72); AST/SGOT 43 U/L (17-59); BLOOD UREA NITROGEN 25 mg/dl (9-20); CALCIUM 9.6 mg/dL (8.4-10.2); GFR AFRICAN-AMERICAN > 60; GFR NON-AFRICAN AMERICAN > 60
== END 2018-04-07 16:41 | disposition home or self-care (01) ==
LOC: H.ER 15:07 → H.ERHOLD 20:05 → H.TEL 21:47
PROVIDERS: ADMIT Internal Medicine; ATTEND Internal Medicine
DX: I48.2 Chronic atrial fibrillation (principal); R07.9 Chest pain, unspecified; I35.0 Nonrheumatic aortic (valve) stenosis; I10 Essential (primary) hypertension; E78.5 Hyperlipidemia, unspecified; E78.00 Pure hypercholesterolemia, unspecified; I25.2 Old myocardial infarction; J45.909 Unspecified asthma, uncomplicated; Z86.73 Personal history of transient ischemic attack (TIA), and cerebral infarction without residual deficits; Z79.01 Long term (current) use of anticoagulants; Z79.82 Long term (current) use of aspirin; Z86.79 Personal history of other diseases of the circulatory system; Z87.891 Personal history of nicotine dependence; Z88.6 Allergy status to analgesic agent; Z88.1 Allergy status to other antibiotic agents
CPT/HCPCS: 36415; 71045; 71275; 74175; 80053; 81003; 82607; 83690; 83735; 83880; 84100; 84436; 84443; 84484; 85025; 85027; 85378; 85610; 85651; 85730; 87086; 93005; 99285; G0378; Q9967